=== PATIENT | female | born 1955 | race Two or more races ===

== ENCOUNTER 2019-02-03 17:57 | Emergency (ER) | payer SELFPAY ==
[~2019-02-03] VITALS: Ht 157.5 cm; Wt 102.1 kg
[2019-02-03 18:52] VITALS: BP 164/78
[2019-02-03] MEDS ORDERED: cefTRIAXone SOD 1,000 MG VL IM ONE (19:00)
[2019-02-03] MEDS ORDERED: AMOXICILLIN/CLAVUL 875 MG TAB PO ONE (19:00)
[2019-02-03] MEDS ORDERED: HYDROcodone-ACET 10/325MG TAB PO ONE (19:00)
[2019-02-03] MEDS ORDERED: TETANUS-DIPTH-ACEL PERTUSSIS 0.5ML SYRG IM ONE (19:30)
== END 2019-02-03 19:53 | disposition home or self-care (01) ==
LOC: ER 17:59
DX: S61.255A Open bite of left ring finger without damage to nail, initial encounter (principal); Z90.49 Acquired absence of other specified parts of digestive tract; W54.0XXA Bitten by dog, initial encounter; Y93.89 Activity, other specified; Y99.8 Other external cause status; Y92.89 Other specified places as the place of occurrence of the external cause
CPT/HCPCS: 73130; 90471; 90715; 96372; 99283; J0696

== ENCOUNTER 2020-07-23 23:11 | Inpatient (IN) | payer MEDICAID ==
[~2020-07-23] VITALS: Ht 160 cm; Wt 100.2 kg
[2020-07-24] VITALS (8 sets, daily range): BP systolic 109–148; BP diastolic 63–78
[2020-07-24 00:11] LABS: Basophils # (auto) 0 10 ^3/uL (0-0.2); Basophils % (auto) 0.2 % (0.0-2.0); Eosinophils # (auto) 0 10 ^3/uL (0-0.8); Hematocrit 47.5 % (36.0-46.0); Hemoglobin 15.7 g/dL (12.2-16.2); Lymphocytes % (auto) 12.4 % (10.0-50.0); Mean Corpuscular Hemoglobin 30.4 pg (28.0-32.0); Mean Corpuscular Hgb Conc. 33.1 g/dL (32.0-36.0); Mean Corpuscular Volume 91.7 fL (80.0-100.0); Monocytes # (auto) 0.6 10 ^3/uL (0-1.3); Monocytes % (auto) 7.9 % (0.0-12.0); Neutrophils # (auto) 6.3 10 ^3/uL (1.6-8.6); Neutrophils % (auto) 79.5 % (37.0-80.0); Nucleated Red Blood Cells % 0.2 %; Platelet Count (auto) 163 10^3/uL (140-450); Red Blood Cells 5.18 10^6/uL (4.0-5.20); White Blood Cell 7.9 10^3/uL (4.4-10.8)
[2020-07-24 00:24] LABS: INR 1.01 (0.9-1.15); Partial Thromboplastin Time 27.9 sec (23.0-31.2)
[2020-07-24 00:27] LABS: Albumin 3.9 g/dL (3.4-5.0); Calcium 9.2 mg/dL (8.5-10.1); Potassium 4.1 mmol/L (3.5-5.1)
[2020-07-24 00:29] LABS: BUN/Creatinine Ratio 23.1
[2020-07-24 00:31] LABS: Bilirubin, Total 0.4 mg/dL (0.2-1.0); Total Protein 8.4 g/dL (6.4-8.2)
[2020-07-24] MEDS ORDERED: LEVO500T21 PO (01:23)
[2020-07-24] MEDS ORDERED: IBUP600T27 PO (01:25)
[2020-07-24] MEDS ORDERED: PRED20TA2 PO (01:25)
[2020-07-24] MEDS ORDERED: THIAMINE INJ 100 MG in SODIUM CHLORIDE 0.9% 1,000 ML IV ONE (01:30)
[2020-07-24] MEDS ORDERED: DexAMETHasone SOD PHOS 10MG/1ML VIAL INJ IV ONE (01:30)
[2020-07-24] MEDS ORDERED: DOXYCYCLINE 100MG/250ML 250 ML IV ONE (01:30)
[2020-07-24] MEDS ORDERED: SODIUM CHLORIDE 0.9% 1,000 ML IV ONE (01:30)
[2020-07-24] MEDS ORDERED: THIAMINE 100mg/ml INJ (200mg/2ml VIAL) ONE (01:57)
[2020-07-24 02:13] LABS: Urine Bacteria FEW /hpf (None Seen); Urine Blood Negative /uL (Negative); Urine Hyaline Cast FEW /lpf (0 - 2); Urine Mucus FEW (None Seen); Urine Specific Gravity 1.032 (1.001-1.035); Urine WBC 8 /hpf (0 - 5)
[2020-07-24] MEDS ORDERED: ONDANSETRON HCL 4 MG/2 ML VIAL IV PRN (05:30)
[2020-07-24] MEDS ORDERED: TEMAZEPAM 15 MG CAP PO PRN (05:30)
[2020-07-24] MEDS ORDERED: NITROGLYCERIN 0.4 MG SL TAB SL PRN (05:30)
[2020-07-24] MEDS ORDERED: ACETAMINOPHEN 325 MG TAB PO PRN (05:30)
[2020-07-24] MEDS ORDERED: MORPHINE SULF INJ 2 MG/ML SYRINGE 1ML IV PRN (05:30)
[2020-07-24 05:51] LABS: Magnesium 2.6 mg/dL (1.6-2.6)
[2020-07-24 06:26] LABS: CRP High Sensitivity 2.77 mg/dL (< 0.3)
[2020-07-24] MEDS: ALBUTEROL SULF HFA 90MCG INH 200DOSE IN SCH ×3 (07:31→21:43)
[2020-07-24] MEDS ORDERED: ENOXAPARIN SOD 40 MG/0.4 ML SYRINGE SC SCH (10:00)
[2020-07-24] MEDS: DOXYCYCLINE 100MG/250ML 250 ML IV SCH ×2 (10:38→23:00)
[2020-07-24] MEDS: DexAMETHasone SOD PHOS 10MG/1ML VIAL INJ IV SCH (10:38)
[2020-07-24] MEDS: CHOLECALCIFEROL (VITD3) 2,000 UNIT CAP PO SCH (10:39)
[2020-07-24] MEDS: FAMOTIDINE 20 MG TAB PO SCH ×2 (10:39→21:51)
[2020-07-24] MEDS: ENOXAPARIN SOD 40 MG/0.4 ML SYRINGE SC SCH (10:39)
[2020-07-24] MEDS: ASCORBIC ACID 1,000 MG TAB PO SCH (10:39)
[2020-07-24] MEDS: ZINC SULFATE 220mg CAP or TAB PO SCH (10:39)
[2020-07-24] MEDS ORDERED: FUROSEMIDE 20 MG/2 ML VIAL IV ONE (11:00)
[2020-07-24] MEDS: HYDROcodone-ACET 5/325MG TAB PO PRN (15:31)
[2020-07-24] MEDS ORDERED: REMDESIVIR 200 MG in NS 210ml LOADING DOSE ADULT IV ONE (17:00)
[2020-07-24] MEDS: BUDESONIDE (INHALATION) 180 MCG IH IN SCH (21:43)
[2020-07-25 05:00] VITALS: BP 114/65
[2020-07-25] MEDS: ALBUTEROL SULF HFA 90MCG INH 200DOSE IN SCH ×3 (06:46→21:32)
[2020-07-25] MEDS: BUDESONIDE (INHALATION) 180 MCG IH IN SCH ×2 (06:47→21:32)
[2020-07-25 09:00] VITALS: BP 128/57
[2020-07-25 09:44] LABS: Basophils # (auto) 0 10 ^3/uL (0-0.2); Eosinophils # (auto) 0 10 ^3/uL (0-0.8); Hematocrit 41.1 % (36.0-46.0); Hemoglobin 13.4 g/dL (12.2-16.2); Lymphocytes # (auto) 0.9 10 ^3/uL (0.4-5.4); Lymphocytes % (auto) 12.9 % (10.0-50.0); Mean Corpuscular Hgb Conc. 32.6 g/dL (32.0-36.0); Monocytes # (auto) 0.4 10 ^3/uL (0-1.3); Monocytes % (auto) 5.7 % (0.0-12.0); Neutrophils # (auto) 5.4 10 ^3/uL (1.6-8.6); Neutrophils % (auto) 81.4 % (37.0-80.0); Nucleated Red Blood Cells % 0.1 %; Platelet Count (auto) 109 10^3/uL (140-450); Red Blood Cells 4.47 10^6/uL (4.0-5.20); Red Cell Distribution Width 14.2 % (11.8-14.3); White Blood Cell 6.6 10^3/uL (4.4-10.8)
[2020-07-25 10:00] LABS: Albumin 3.1 g/dL (3.4-5.0); Calcium 7.9 mg/dL (8.5-10.1); Potassium 3.5 mmol/L (3.5-5.1)
[2020-07-25 10:03] LABS: BUN/Creatinine Ratio 38.6; Bilirubin, Total 0.4 mg/dL (0.2-1.0); Total Protein 6.3 g/dL (6.4-8.2)
[2020-07-25] MEDS: DexAMETHasone SOD PHOS 10MG/1ML VIAL INJ IV SCH (11:05)
[2020-07-25] MEDS: FUROSEMIDE 20 MG/2 ML VIAL IV SCH (11:06)
[2020-07-25] MEDS: ZINC SULFATE 220mg CAP or TAB PO SCH (11:07)
[2020-07-25] MEDS: CHOLECALCIFEROL (VITD3) 2,000 UNIT CAP PO SCH (11:07)
[2020-07-25] MEDS: FAMOTIDINE 20 MG TAB PO SCH ×2 (11:07→22:44)
[2020-07-25] MEDS: ASCORBIC ACID 1,000 MG TAB PO SCH (11:07)
[2020-07-25] MEDS: DOXYCYCLINE 100MG/250ML 250 ML IV SCH ×2 (11:07→22:43)
[2020-07-25] MEDS: ENOXAPARIN SOD 40 MG/0.4 ML SYRINGE SC SCH (11:08)
[2020-07-25 12:50] VITALS: BP 117/60
[2020-07-25 16:49] VITALS: BP 103/55
[2020-07-25] MEDS: REMDESIVIR 100mg in NS 230ml DAILYx4DAYS (NO VENT) IV SCH (17:35)
[2020-07-25 22:00] VITALS: BP 112/58
[2020-07-26 05:01] VITALS: BP 121/60
[2020-07-26] MEDS: ALBUTEROL SULF HFA 90MCG INH 200DOSE IN SCH ×3 (07:11→22:02)
[2020-07-26] MEDS: BUDESONIDE (INHALATION) 180 MCG IH IN SCH ×2 (07:12→22:02)
[2020-07-26 08:00] VITALS: BP 127/54
[2020-07-26 09:00] LABS: Albumin 2.9 g/dL (3.4-5.0); BUN/Creatinine Ratio 36.4; Calcium 7.4 mg/dL (8.5-10.1)
[2020-07-26 09:04] LABS: Bilirubin, Total 0.5 mg/dL (0.2-1.0); Total Protein 6.1 g/dL (6.4-8.2)
[2020-07-26] MEDS: DexAMETHasone SOD PHOS 10MG/1ML VIAL INJ IV SCH (10:31)
[2020-07-26] MEDS: ENOXAPARIN SOD 40 MG/0.4 ML SYRINGE SC SCH (10:31)
[2020-07-26] MEDS: FUROSEMIDE 20 MG/2 ML VIAL IV SCH (10:31)
[2020-07-26] MEDS: CHOLECALCIFEROL (VITD3) 2,000 UNIT CAP PO SCH (10:32)
[2020-07-26] MEDS: ZINC SULFATE 220mg CAP or TAB PO SCH (10:32)
[2020-07-26] MEDS: FAMOTIDINE 20 MG TAB PO SCH ×2 (10:32→20:41)
[2020-07-26] MEDS: ASCORBIC ACID 1,000 MG TAB PO SCH (10:32)
[2020-07-26] MEDS: DOXYCYCLINE 100MG/250ML 250 ML IV SCH ×2 (10:39→20:41)
[2020-07-26 12:00] VITALS: BP 138/76
[2020-07-26] MEDS ORDERED: POTASSIUM EFFERVESENT TAB 25 MEQ PO ONE (12:30)
[2020-07-26] MEDS ORDERED: POTASSIUM CHL 20 Meq TABLET PO ONE (12:30)
[2020-07-26 16:57] VITALS: BP 120/55
[2020-07-26] MEDS: REMDESIVIR 100mg in NS 230ml DAILYx4DAYS (NO VENT) IV SCH (17:19)
[2020-07-26 20:02] VITALS: BP 125/57
[2020-07-26 21:35] VITALS: BP 125/56
[2020-07-27 05:00] VITALS: BP 110/60
[2020-07-27] MEDS: LEVOTHYROXINE SODIUM 25 MCG TAB PO SCH (06:32)
[2020-07-27] MEDS: ALBUTEROL SULF HFA 90MCG INH 200DOSE IN SCH ×3 (06:45→22:52)
[2020-07-27] MEDS: BUDESONIDE (INHALATION) 180 MCG IH IN SCH ×2 (06:45→22:53)
[2020-07-27 07:40] LABS: Potassium 3.9 mmol/L (3.5-5.1)
[2020-07-27 08:00] VITALS: BP_SYST 126; BP_SYST 127; BP_DIAS 54; BP_DIAS 61
[2020-07-27 08:00] LABS: Albumin 2.9 g/dL (3.4-5.0); BUN/Creatinine Ratio 48.6; Bilirubin, Total 0.5 mg/dL (0.2-1.0); Calcium 8.1 mg/dL (8.5-10.1); Magnesium 2.5 mg/dL (1.6-2.6)
[2020-07-27] MEDS: DexAMETHasone SOD PHOS 10MG/1ML VIAL INJ IV SCH (09:59)
[2020-07-27] MEDS: ZINC SULFATE 220mg CAP or TAB PO SCH (10:00)
[2020-07-27] MEDS: FAMOTIDINE 20 MG TAB PO SCH ×2 (10:00→22:11)
[2020-07-27] MEDS: FUROSEMIDE 20 MG/2 ML VIAL IV SCH (10:00)
[2020-07-27] MEDS: DOXYCYCLINE 100MG/250ML 250 ML IV SCH ×2 (10:00→22:11)
[2020-07-27] MEDS: ENOXAPARIN SOD 40 MG/0.4 ML SYRINGE SC SCH (10:01)
[2020-07-27] MEDS: CHOLECALCIFEROL (VITD3) 2,000 UNIT CAP PO SCH (10:01)
[2020-07-27] MEDS: ASCORBIC ACID 1,000 MG TAB PO SCH (10:01)
[2020-07-27 12:00] VITALS: BP 118/65
[2020-07-27 14:15] VITALS: BP 119/63
[2020-07-27] MEDS: REMDESIVIR 100mg in NS 230ml DAILYx4DAYS (NO VENT) IV SCH (16:45)
[2020-07-27 17:00] VITALS: BP 120/59
[2020-07-27 21:49] VITALS: BP 115/68
[2020-07-28] MEDS: HYDROcodone-ACET 5/325MG TAB PO PRN (00:29)
[2020-07-28 05:00] VITALS: BP 107/53
[2020-07-28] MEDS: LEVOTHYROXINE SODIUM 25 MCG TAB PO SCH (06:15)
[2020-07-28] MEDS: ALBUTEROL SULF HFA 90MCG INH 200DOSE IN SCH ×3 (06:17→22:49)
[2020-07-28] MEDS: BUDESONIDE (INHALATION) 180 MCG IH IN SCH ×2 (06:18→22:49)
[2020-07-28 08:00] VITALS: BP 130/77
[2020-07-28 08:26] LABS: Hematocrit 43.8 % (36.0-46.0); Hemoglobin 14.4 g/dL (12.2-16.2); Mean Corpuscular Hemoglobin 30.1 pg (28.0-32.0); Mean Corpuscular Hgb Conc. 32.9 g/dL (32.0-36.0); Mean Corpuscular Volume 91.5 fL (80.0-100.0); Platelet Count (auto) 115 10^3/uL (140-450); Red Blood Cells 4.78 10^6/uL (4.0-5.20); Red Cell Distribution Width 14.1 % (11.8-14.3); White Blood Cell 6.1 10^3/uL (4.4-10.8)
[2020-07-28 08:31] LABS: Band Neutrophils % (manual) 0; Basophils % (manual) 0 (0.0-2.0); Blast Cells 0; Eosinophils % (manual) 0 (0-7); Metamyelocytes % 0; Promyelocytes % 0; Reactive Lymphocytes 0
[2020-07-28 08:35] LABS: Potassium 3.7 mmol/L (3.5-5.1)
[2020-07-28 08:48] LABS: Albumin 2.9 g/dL (3.4-5.0); BUN/Creatinine Ratio 47.5; Bilirubin, Total 0.5 mg/dL (0.2-1.0); CRP High Sensitivity 4.67 mg/dL (< 0.3); Calcium 8.1 mg/dL (8.5-10.1); Total Protein 6.1 g/dL (6.4-8.2)
[2020-07-28 09:18] LABS: Lymphocytes % (manual) 25 (10.0-50.0); Monocytes % (manual) 4 (0-12); Myelocytes % 4
[2020-07-28] MEDS: DexAMETHasone SOD PHOS 10MG/1ML VIAL INJ IV SCH (09:35)
[2020-07-28] MEDS: FUROSEMIDE 20 MG/2 ML VIAL IV SCH (09:39)
[2020-07-28] MEDS: DOXYCYCLINE 100MG/250ML 250 ML IV SCH ×2 (09:39→21:49)
[2020-07-28] MEDS: ZINC SULFATE 220mg CAP or TAB PO SCH (09:40)
[2020-07-28] MEDS: FAMOTIDINE 20 MG TAB PO SCH (09:40)
[2020-07-28] MEDS: ASCORBIC ACID 1,000 MG TAB PO SCH (09:40)
[2020-07-28] MEDS: CHOLECALCIFEROL (VITD3) 2,000 UNIT CAP PO SCH (09:40)
[2020-07-28] MEDS: ENOXAPARIN SOD 40 MG/0.4 ML SYRINGE SC SCH (09:41)
[2020-07-28] MEDS ORDERED: ONDANSETRON ODT 4 MG TAB PO ONE (11:30)
[2020-07-28] MEDS ORDERED: PANTOPRAZOLE 40 MG TAB PO ONE (11:30)
[2020-07-28 12:00] VITALS: BP 123/61
[2020-07-28] MEDS ORDERED: FUROSEMIDE 40 MG/4 ML VIAL IV ONE (14:00)
[2020-07-28] MEDS ORDERED: POTASSIUM CHL 20 Meq TABLET PO ONE (15:00)
[2020-07-28 16:00] VITALS: BP 109/54
[2020-07-28] MEDS ORDERED: ALBUAER3 IN (16:38)
[2020-07-28] MEDS ORDERED: CHOL1CAP47 PO (16:38)
[2020-07-28] MEDS ORDERED: METH4PAK PO (16:38)
[2020-07-28] MEDS ORDERED: ASCO10003 PO (16:38)
[2020-07-28] MEDS ORDERED: PANT40T PO (16:38)
[2020-07-28] MEDS ORDERED: ZINC220T6 PO (16:38)
[2020-07-28] MEDS: REMDESIVIR 100mg in NS 230ml DAILYx4DAYS (NO VENT) IV SCH (17:49)
[2020-07-28] MEDS ORDERED: ONDANSETRON ODT 4 MG TAB PO PRN (18:00)
[2020-07-28 22:00] VITALS: BP 128/60
[2020-07-29 05:15] VITALS: BP 117/66
[2020-07-29] MEDS: LEVOTHYROXINE SODIUM 25 MCG TAB PO SCH (06:32)
[2020-07-29] MEDS: ALBUTEROL SULF HFA 90MCG INH 200DOSE IN SCH ×2 (07:04→14:29)
[2020-07-29] MEDS: BUDESONIDE (INHALATION) 180 MCG IH IN SCH (07:04)
[2020-07-29 08:46] VITALS: BP 120/54
[2020-07-29] MEDS: DexAMETHasone SOD PHOS 10MG/1ML VIAL INJ IV SCH (09:22)
[2020-07-29] MEDS: FUROSEMIDE 20 MG/2 ML VIAL IV SCH (09:23)
[2020-07-29] MEDS: ZINC SULFATE 220mg CAP or TAB PO SCH (09:23)
[2020-07-29] MEDS: ASCORBIC ACID 1,000 MG TAB PO SCH (09:24)
[2020-07-29] MEDS: CHOLECALCIFEROL (VITD3) 2,000 UNIT CAP PO SCH (09:24)
[2020-07-29] MEDS: ENOXAPARIN SOD 40 MG/0.4 ML SYRINGE SC SCH (09:25)
[2020-07-29] MEDS ORDERED: PANTOPRAZOLE 40 MG TAB PO SCH (10:00)
[2020-07-29] MEDS ORDERED: POTA1TAB61 PO (10:58)
[2020-07-29] MEDS ORDERED: FURO20TA3 PO (10:58)
[2020-07-29 12:40] VITALS: BP 127/72
[2020-07-29 13:59] VITALS: BP 127/72
== END 2020-07-29 16:13 | disposition home or self-care (01) | DRG 720 ==
LOC: EDBD 23:15 → ER 23:15 → TELE 23:16 → MERGE 23:16 → TELE-EAST 07-24 11:44
PROVIDERS: ADMIT Nurse Practitioner; ATTEND Internal Medicine
PROC: XW033E5 Introduction of Remdesivir Anti-infective into Peripheral Vein, Percutaneous Approach, New Technology Group 5 (ICD-10-PCS; principal; 2020-07-24)
PROC: XW13325 Transfusion of Convalescent Plasma (Nonautologous) into Peripheral Vein, Percutaneous Approach, New Technology Group 5 (ICD-10-PCS; 2020-07-24)
DX: A41.89 Other specified sepsis (principal); J12.89 Other viral pneumonia; J96.01 Acute respiratory failure with hypoxia; U07.1 COVID-19; E03.9 Hypothyroidism, unspecified; E66.01 Morbid (severe) obesity due to excess calories; E86.0 Dehydration; I10 Essential (primary) hypertension; J42 Unspecified chronic bronchitis; M54.9 Dorsalgia, unspecified; M19.90 Unspecified osteoarthritis, unspecified site; Z87.442 Personal history of urinary calculi; Z68.39 Body mass index [BMI] 39.0-39.9, adult; J20.9 Acute bronchitis, unspecified
CPT/HCPCS: 36415; 71045; 80053; 81001; 82728; 82962; 83036; 83605; 83615; 83735; 83880; 84439; 84443; 84484; 85007; 85025; 85027; 85379; 85610; 85730; 86141; 86850; 86900; 86901; 87040; 87086; 87426; 93005; 94640; 99291; G0378; J1100; J3490

== ENCOUNTER 2023-02-22 17:45 | Emergency (ER) | payer OTHER, MEDICAID ==
[~2023-02-22] VITALS: Ht 147.3 cm; Wt 111.5 kg
[2023-02-22 17:45] VITALS: BP 140/62
[~2023-02-22 17:45] MED LIST: ALBUAER3 IN; ASCO10003 PO; CHOL1CAP47 PO; FURO20TA3 PO; METH4PAK PO; PANT40T PO; POTA1TAB61 PO; ZINC220T6 PO
== END 2023-02-22 20:14 | disposition left against medical advice (07) ==
LOC: ER 17:45
DX: R51.9 Headache, unspecified (principal); M25.561 Pain in right knee; Z53.21 Procedure and treatment not carried out due to patient leaving prior to being seen by health care provider
CPT/HCPCS: 70450; 73562

== ENCOUNTER → 2024-04-03 | Outpatient (CLI) | payer OTHER ==
[~2024-04-03] MED LIST changes: +POTA-215 PO; -POTA1TAB61 PO
[2024-04-03 11:33] LABS: Basophils # (auto) 0 10 ^3/uL (0-0.2); Basophils % (auto) 0.5 % (0.0-2.0); Eosinophils # (auto) 0 10 ^3/uL (0-0.8); Eosinophils % (auto) 0.5 % (0.0-7.0); Hematocrit 44.1 % (36.0-46.0); Hemoglobin 14.8 g/dL (12.2-16.2); Lymphocytes # (auto) 1.6 10 ^3/uL (0.4-5.4); Lymphocytes % (auto) 24.6 % (10.0-50.0); Mean Corpuscular Hemoglobin 30.7 pg (28.0-32.0); Mean Corpuscular Hgb Conc. 33.6 g/dL (32.0-36.0); Mean Corpuscular Volume 91.2 fL (80.0-100.0); Monocytes # (auto) 0.6 10 ^3/uL (0-1.3); Monocytes % (auto) 9.4 % (0.0-12.0); Neutrophils # (auto) 4.3 10 ^3/uL (1.6-8.6); Nucleated Red Blood Cells % 0.1 %; Red Blood Cells 4.83 10^6/uL (4.0-5.20); Red Cell Distribution Width 14.2 % (11.8-14.3); White Blood Cell 6.5 10^3/uL (4.4-10.8)
[2024-04-03 12:04] LABS: Urine Bacteria FEW /hpf (None Seen); Urine Blood Negative /uL (Negative); Urine Clarity Clear (Clear); Urine Color Yellow (Yellow); Urine Mucus FEW (None Seen); Urine Protein, UAD Negative (Negative); Urine Specific Gravity 1.024 (1.001-1.035); Urine Urobilinogen Normal (Negative); Urine WBC 2 /hpf (0 - 5)
[2024-04-03 12:09] LABS: Alanine Aminotransferase 11 U/L (7-40); Albumin 4.3 g/dL (3.2-4.8); Alkaline Phosphatase 93 U/L (46-116); Anion Gap 4 (5-15); Aspartate Aminotransferase 15 U/L (13-40); BUN/Creatinine Ratio 22.5 (10.0-20.0); Bilirubin, Total 0.5 mg/dL (0.2-1.0); Blood Urea Nitrogen 16 mg/dL (9-23); Calcium 9.7 mg/dL (8.5-10.1); Carbon Dioxide 30 mmol/L (20-30); Chloride 107 mmol/L (98-107); Cholesterol 132 mg/dL (< 200); Glucose 99 mg/dL (74-106); HDL Cholesterol 33 mg/dL (40-59); LDL Cholesterol 85 mg/dL (< 100); Potassium 3.8 mmol/L (3.5-5.1); Sodium 141 mmol/L (136-145); Total Protein 6.6 g/dL (5.7-8.2); Triglycerides 156 mg/dL (< 150)
== END | disposition home or self-care (01) ==
LOC: LAB 11:13
PROVIDERS: ATTEND Student in an Organized Health Care Education/Training Program
DX: Z00.01 Encounter for general adult medical examination with abnormal findings (principal); Z12.11 Encounter for screening for malignant neoplasm of colon; I10 Essential (primary) hypertension; E55.9 Vitamin D deficiency, unspecified; E78.5 Hyperlipidemia, unspecified; Z79.899 Other long term (current) drug therapy
CPT/HCPCS: 36415; 80053; 80061; 81001; 82306; 83036; 84443; 85025

== ENCOUNTER → 2024-11-19 | Outpatient (CLI) | payer OTHER ==
[2024-11-19 09:37] LABS: Urine Bacteria None Seen /hpf (None Seen)
[2024-11-19 10:00] LABS: Urine Blood Negative /uL (Negative); Urine Clarity Clear (Clear); Urine Color Light-Yellow (Yellow); Urine Mucus FEW (None Seen); Urine Protein, UAD Negative (Negative); Urine Specific Gravity 1.022 (1.001-1.035); Urine Squamous Epithelial Cell FEW /hpf (<5); Urine Urobilinogen Normal (Negative); Urine WBC 1 /HPF (0-5)
[2024-11-19 10:53] LABS: Basophils # (auto) 0 10 ^3/uL (0-0.2); Basophils % (auto) 0.4 % (0.0-2.0); Eosinophils # (auto) 0.1 10 ^3/uL (0-0.8); Hematocrit 43.6 % (36.0-46.0); Hemoglobin 14.2 g/dL (12.2-16.2); Lymphocytes # (auto) 1.3 10 ^3/uL (0.4-5.4); Lymphocytes % (auto) 20.2 % (10.0-50.0); Mean Corpuscular Hemoglobin 29.9 pg (28.0-32.0); Mean Corpuscular Hgb Conc. 32.6 g/dL (32.0-36.0); Mean Corpuscular Volume 91.8 fL (80.0-100.0); Monocytes # (auto) 0.5 10 ^3/uL (0-1.3); Monocytes % (auto) 7.8 % (0.0-12.0); Neutrophils # (auto) 4.4 10 ^3/uL (1.6-8.6); Neutrophils % (auto) 69.6 % (37.0-80.0); Nucleated Red Blood Cells % 0.1 %; Platelet Count (auto) 131 10^3/uL (140-450); Red Blood Cells 4.75 10^6/uL (4.0-5.20); Red Cell Distribution Width 14.7 % (11.8-14.3); White Blood Cell 6.3 10^3/uL (4.4-10.8)
[2024-11-19 11:13] LABS: Free T4 (Free Thyroxine) 1.06 ng/dL (0.89-1.76)
[2024-11-19 12:40] LABS: Alanine Aminotransferase 19 U/L (7-40); Alkaline Phosphatase 87 U/L (46-116); Anion Gap 11 (5-15); BUN/Creatinine Ratio 31.1 (10.0-20.0); Blood Urea Nitrogen 23 mg/dL (9-23); Calcium 9.4 mg/dL (8.7-10.4); Carbon Dioxide 26 mmol/L (20-31); Chloride 106 mmol/L (98-107); Sodium 143 mmol/L (136-145)
[2024-11-19 12:41] LABS: Albumin 4.5 g/dL (3.2-4.8); Aspartate Aminotransferase 23 U/L (13-40)
[2024-11-19 12:42] LABS: Bilirubin, Total 0.7 mg/dL (0.2-1.0); Total Protein 6.7 g/dL (5.7-8.2)
[2024-11-19 12:48] LABS: Glucose 111 mg/dL (74-106)
[2024-11-20 16:05] LABS: Cholesterol 94 mg/dL (< 200); HDL Cholesterol 38 mg/dL (40-59); LDL Cholesterol 46 mg/dL (< 100); Triglycerides 91 mg/dL (< 150)
== END | disposition home or self-care (01) ==
LOC: LAB 09:15
PROVIDERS: ATTEND Nurse Practitioner Family
DX: Z12.11 Encounter for screening for malignant neoplasm of colon (principal); I10 Essential (primary) hypertension; E03.9 Hypothyroidism, unspecified; R73.03 Prediabetes; E66.09 Other obesity due to excess calories
CPT/HCPCS: 36415; 80053; 80061; 81001; 82306; 82607; 83036; 84439; 84443; 85025

== ENCOUNTER 2025-05-07 15:08 | Inpatient (IN) | payer OTHER ==
[~2025-05-07] VITALS: Ht 162.6 cm; Wt 106.5 kg
[2025-05-07 02:32] VITALS: BP 129/66; PULSE 52; RESP 17; TEMP 97.6; O2SAT 97
--- NOTE | 2025-05-07 15:56 | ED.PDOC ---
GI ASSESSMENT HPI Comments 69y F who presents to the ED for chief complaint of abdominal pain. Pt states she has been having abdominal pain for the past 2 days. Pt states the pain is diffusely located, sharp in nature, rating the pain 5/10, non-radiating, with no associated exacerbating or relieving factors. Pt states she has been having nausea and constipation but otherwise denies any other symptoms. Pt states she has not had bowel movement in the past 2 days. Pt denies any other symptoms at this time. Chief Complaint: Abdominal Pain Time Seen by MD: 15:54 Primary Care Provider: JOSEK Reviewed Notes: Nurses Notes, Medications, Allergies Allergies: Coded Allergies: NO KNOWN ALLERGIES (Unverified , 02/03/19) Home Meds Active Scripts Potassium Chloride (Klor-Con M10) 10 Meq Tab, 1 TAB PO DAILY, #7 TAB 0 Refills Prov:ISAIAS DOTY MD 07/29/20 Furosemide (Furosemide) 20 Mg Tab, 1 TAB PO DAILY, #7 TAB 0 Refills Prov:ISAIAS DOTY MD 07/29/20 Methylprednisolone (Medrol Dosepak) 4 Mg Bakari, 4 MG PO UD, #21 TAB UAD Prov:ISAIAS DOTY MD 07/28/20 Zinc Sulfate (Zinc Sulfate) 220 Mg Tab, 220 MG PO DAILY for 30 Days, #30 TAB Prov:ISAIAS DOTY MD 07/28/20 Pantoprazole Sodium Sesquihydr (Pantoprazole Sodium) 40 Mg Tab, 40 MG PO DAILY for 30 Days, #30 TAB Prov:ISAIAS DOTY MD 07/28/20 Cholecalciferol (Vitamin D3 Super Strength) 2,000 Unit Cap, 4000 UNIT PO DAILY for 30 Days, #60 CAP Prov:ISAIAS DOTY MD 07/28/20 Ascorbic Acid (Gnp Vitamin C W/Allyson Hips) 1,000 Mg Tab, 1000 MG PO DAILY for 30 Days, #30 TAB Prov:ISAIAS DOTY MD 07/28/20 Albuterol Sulfate (VENTOLIN MDI) 90 Mcg Ih, 90 MCG IN TID, #1 INH Prov:ISAIAS DOTY MD 07/28/20 Information Source: Patient Mode of Arrival: Ambulatory Brought in by: self Timing: Days Duration: Since onset Prehospital treatment: None Quality: Aching Vomitus: None Stool: Minimal Severity: Moderate Recent: None Recent Hx of: None Pain Location: Diffuse Modifying Factors: Nothing Associated sign and symptoms: Nausea, Constipation Past Medical History PAST MEDICAL HISTORY: HTN Surgical History: Cholecystectomy CERAMIC ARTIST History: No Pertinent CERAMIC ARTIST History Family History Family History: Unknown Social History Smoker: Non-Smoker Alcohol: Denies ETOH Use Drugs: Denies Drug Use Lives In: Home Constitutional: denies: chills, diaphoresis, fatigue, fever, malaise, sweats, weakness, others EENTM: denies: blurred vision, double vision, ear bleeding, ear discharge, ear drainage, ear pain, ear ringing, eye pain, eye redness, hearing loss, mouth pain, mouth swelling, nasal discharge, nose bleeding, nose congestion, nose pain , photophobia, tearing, throat pain, throat swelling, voice changes, others Respiratory: denies: cough, hemoptysis, orthopnea, SOB at rest, shortness of breath, SOB with excertion, stridor, wheezing, others Cardiovascular: denies: chest pain, dizzy spells, diaphoresis, Dyspnea on exertion, edema, irregular heart beat, left arm pain, lightheadedness, palpitations, PND, syncope, others Gastrointestinal: reports: abdominal pain, constipated, nausea; denies: abdomen distended, blood streaked bowels, diarrhea, dysphagia, difficulty swallowing, hematemesis, melena, poor appetite, poor fluid intake, rectal bleeding, rectal pain, vomiting, others Genitourinary: denies: abnormal vagina bleeding, burning, dyspareunia, dysuria, flank pain, frequency, hematuria, incontinence, pain, , vagina discharge, urgency, others Neurological: denies: dizziness, fainting, headache, left sided numbness, left sided weakness, numbness, paresthesia, pre-existing deficit, right sided nu mbness, right sided weakness, seizure, speech problems, tingling, tremors, weakness, others Musculoskeletal: denies: back pain, gout, joint pain, joint swelling, muscle pain, muscle stiffness, neck pain, others Integumetry: denies: bruises, change in color, change in hair/nails, dryness, laceration, lesions, lumps, rash, wounds, others Allergic/Immunocompromised: denies: Difficulty Healing, Frequent Infections, Hives, Itching, others Hematologic/Lymphatic: denies: anemia, blood clots, easy bleeding, easy bruising, swollen glands, others Endocrine: denies: excessive hunger, excessive sweating, excessive thirst, excessive urination, flushing, intolerance to cold, intolerance to heat, unexplained weight gain, unexplained weight loss, others Psychiatric: denies: anxiety, bipolar disorder, depression, hopeless, panic disorder, schizophrenia, sleepless, suicidal, others All Other Systems: Reviewed and Negative Physical Exam General Appearance: Moderate Distress, Obese HEENT: Normal ENT Inspection, Pharynx Normal, TMs Normal Neck: Full Range of Motion, Non-Tender, Normal, Normal Inspection Respiratory: Chest Non-Tender, Lungs Clear, No Accessory Muscle Use, No Respiratory Distress, Normal Breath Sounds Cardiovascular: No Edema, No JVD, No Murmur, No Gallop, Normal Peripheral Pulses, Regular Rate/Rhythm Breast Exam: Deferred Gastrointestinal: Diffuse, No Organomegaly, No Pulsatile Mass, Normal Bowel Sounds, Soft, Tenderness Genitalia: Deferred Pelvic: Deferred Rectal: Deferred Extremities: No calf tenderness, Normal capillary refill, Normal inspection, Normal range of motion, Non-tender, No pedal edema Musculoskeletal : Apperance: Normal Neurologic: Alert, fish liver sorter II-XII nml as Tested, Motor Weakness, Normal Affect, Normal Mood, No Sensory Deficits Cerebellar Function: Normal Reflexes: Normal Skin: Dry, Normal Color, Warm Lymphatic: No Adenopathy Was a procedure done? Was a procedure done?: No GI differential Dx Differential Diagnosis: Constipation, Gastritis/PUD, Gastroenteritis, Hernia, Pancreatitis, UTI, Dehydration, Food Poisoning, Bacterial, Viral X-Ray, Labs, Meds, VS Vital Signs Date Time Temp Pulse Resp B/P (MAP) Pulse Ox O2 Delivery O2 Flow Rate FiO2 05/07/25 15:10 98.1 63 16 110/62 95 98.1 Lab Test 05/07/25 16:01 Range/Units White Blood Count 8.0 4.4-10.8 10^3/uL Red Blood Count 4.88 4.0-5.20 10^6/uL Hemoglobin 14.9 12.2-16.2 g/dL Hematocrit 44.9 36.0-46.0 % Mean Corpuscular Volume 92.0 80.0-100.0 fL Mean Corpuscular Hemoglobin 30.6 28.0-32.0 pg Mean Corpuscular Hemoglobin Concent 33.2 32.0-36.0 g/dL Red Cell Distribution Width 14.6 H 11.8-14.3 % Platelet Count 180 140-450 10^3/uL Mean Platelet Volume 9.9 6.9-10.8 fL Neutrophils (%) (Auto) 69.0 37.0-80.0 % Lymphocytes (%) (Auto) 23.8 10.0-50.0 % Monocytes (%) (Auto) 6.5 0.0-12.0 % Eosinophils (%) (Auto) 0.5 0.0-7.0 % Basophils (%) (Auto) 0.2 0.0-2.0 % Neutrophils # (Auto) 5.5 1.6-8.6 10 ^3/uL Lymphocytes # (Auto) 1.9 0.4-5.4 10 ^3/uL Monocytes # (Auto) 0.5 0-1.3 10 ^3/uL Eosinophils # (Auto) 0 0-0.8 10 ^3/uL Basophils # (Auto) 0 0-0.2 10 ^3/uL Nucleated Red Blood Cells 0.3 % Sodium Level Pending Potassium Level Pending Chloride Level Pending Carbon Dioxide Level Pending Anion Gap Pending Blood Urea Nitrogen Pending Creatinine Pending Glomerular Filtration Rate Calc Pending BUN/Creatinine Ratio Pending Serum Glucose Pending Calcium Level Pending Total Bilirubin Pending Aspartate Amino Transferase (AST) Pending Alanine Aminotransferase (ALT) Pending Alkaline Phosphatase Pending Total Protein Pending Albumin Pending Lipase Pending CAT scan of the abdomen and pelvis shows: IMPRESSION: Limited evaluation without contrast. Ventral wall hernia containing small and large bowel measuring 15.1 x 7.6 cm without evidence for obstruction. Moderate volume stool in the colon. Cirrhotic morphology liver. Atherosclerotic disease. Cholecystectomy clips. An IV Hep-Lock was established The patient was given morphine 4 mg IV push for the pain The patient was given Zofran 4 mg IV push for the nausea. The patient was given Protonix 40 mg IV push The patient's CBC is within normal limits. At this time, the patient is being admitted to the hospitalist. Images Reviewed?: Images reviewed and evaluated by me Time of 1ST Reevaluation: 16:48 Reevaluation 1ST: Improved Patient Education/Counseling: Diagnosis, Treatment, Prognosis Family Education/Counseling: No Family Present SEPSIS Sepsis Screen Date sepsis recognized/suspect: May 07, 2025 Time Sepsis recognized/suspect: 1510 Recent Procedure: No On Antibiotic Therapy: No Respiratory Rate >20: No Heart Rate >90: No Temp<36 C (96.8 F) or >38.3 C: No SBP <90 or MAP <65 mmHG: No New Acute Mental Status Change: No Is the patient on CPAP, BIPAP,: No Physician Orders Comprehensive Metabolic Panel (05/07/25 15:37) Lipase (05/07/25 15:37) Urinalysis (05/07/25 15:37) Ct Ab Pel Wo Con-No Oral Or Iv (05/07/25 15:37) Heplock Iv (05/07/25 15:37) Kettle Fry Cook Operator (05/07/25 15:37) Blood Pressure (05/07/25 15:37) Pulse Oximetry (05/07/25 15:37) Vital Signs Date Time Temp Pulse Resp B/P (MAP) Pulse Ox O2 Delivery O2 Flow Rate FiO2 05/07/25 15:10 98.1 63 16 110/62 95 98.1 Laboratory Tests Test 05/07/25 16:01 White Blood Count 8.0 10^3/uL (4.4-10.8) Departure 1 Departure Time of Disposition: 16:48 Impression: Primary Impression: Intractable abdominal pain Additional Impression: Ventral hernia Qualified Codes: K43.9 - Ventral hernia without obstruction or gangrene Disposition: 09 ADMITTED INPATIENT Admit to: Med Surg Condition: Fair Critical Care Note Critical Care Time?: No Stability Stability form required: Yes Unstable for transfer: ED Physician Assesment (Clinical assesment) Heart Score Heart Score: Heart Score Response (Comments) Value History N/A 0 EKG N/A 0 Age N/A 0 Risk Factors N/A 0 Troponin N/A 0 Total 0 I personally scribed for CAYLA SÁNCHEZ MD ([email or web address]) on 05/07/25 at 15:56. Electronically submitted by Moni PHILLIP). CAYLA SÁNCHEZ MD May 07, 2025 15:56
[2025-05-07 16:32] LABS: Hematocrit 44.9 % (36.0-46.0); Hemoglobin 14.9 g/dL (12.2-16.2); Mean Corpuscular Hemoglobin 30.6 pg (28.0-32.0); Mean Corpuscular Volume 92.0 fL (80.0-100.0); Nucleated Red Blood Cells % 0.3 %
--- NOTE | 2025-05-07 16:32 | DVH ---
Indication: pain Technique: CT axial images of the abdomen and pelvis are obtained without contrast. Coronal and sagit nakul reformats were obtained. Radiation Dose Information: CTDI volume is 23.7 mGy. Dose-length product is 3.92 mGy*cm Comparison: None FINDINGS: There is limited interpretation of the abdomen and pelvis without administration of intravenous contr ast. Lung bases demonstrate no pleural effusion. Adrenal glands, spleen, pancreas unremarkable in shape. Cholecystectomy. Liver capsule nodular morph ology. No hydronephrosis/ nephrolithiasis. Stomach is partially distended. Small bowel loops are normal in caliber. Moderate volume stool in the colon. Normal appendix. Ventral wall hernia containing small and large bowel measuring 15.1 x 7.6 cm . Abdominal aortic atherosclerotic disease. Bladder partially distended. No free pelvic fluid. No ingui nal lymphadenopathy. Moderate bilateral sacroiliac degenerative joint disease. Moderate thoracolumbar degenerative disc di sease and facet hypertrophic changes. IMPRESSION: Limited evaluation without contrast. Ventral wall hernia containing small and large bowel measuring 15.1 x 7.6 cm without evidence for obs truction. Moderate volume stool in the colon. Cirrhotic morphology liver. Atherosclerotic disease. Cholecystectomy clips. Other findings as described.
[2025-05-07 16:45] LABS: Alanine Aminotransferase 11 U/L (7-40); Albumin 4.6 g/dL (3.2-4.8); Alkaline Phosphatase 98 U/L (46-116); Anion Gap 8 (5-15); BUN/Creatinine Ratio 21.1 (10.0-20.0); Bilirubin, Total 0.4 mg/dL (0.2-1.0); Blood Urea Nitrogen 16 mg/dL (9-23); Calcium 8.9 mg/dL (8.7-10.4); Carbon Dioxide 27 mmol/L (20-31); Glucose 100 mg/dL (74-106); Lipase 36 U/L (12-53); Potassium 4.3 mmol/L (3.5-5.1); Sodium 142 mmol/L (136-145); Total Protein 7.0 g/dL (5.7-8.2)
[2025-05-07 16:58] LABS: Chloride 107 mmol/L (98-107)
[2025-05-07 18:51] LABS: Urine Protein, UAD Negative (Negative)
[2025-05-07] MEDS: SODIUM CHLORIDE 0.9% 500 ML IVB ONE (19:12)
[2025-05-07] MEDS: MORPHINE SULFATE 4 MG/ML SYR/VIAL IV ONE (19:50)
[2025-05-07] MEDS: ONDANSETRON HCL 4 MG/2 ML VIAL IV ONE (19:51)
[2025-05-07] MEDS: PANTOPRAZOLE 40 MG/10 ML VIAL INJ IV ONE (19:52)
[2025-05-07] MEDS ORDERED: ALBUTEROL SULF 2.5 MG/0.5ML(0.5%) NEB SOLN NEB PRN (20:15)
--- NOTE | 2025-05-07 22:35 | DVHHP2 ---
History of Present Illness Reason for Visit: Abdominal pain History of Present Illness 69-year-old female presents for evaluation of abdominal pain. Patient endorses a two day history of diffuse abdominal pain/feeling bloated with associated nausea. She also reports being constipated for the last two days. No fever or chills. No cardiac or respiratory complaints. Past Medical History Hypertension Past Surgical History Cholecystectomy Family History Noncontributory Smoke: No ALCOHOL: none Drugs: None Review of Systems Review of Systems Review of systems are currently negative otherwise addressed in HPI. Allergies: Coded Allergies: NO KNOWN ALLERGIES (Unverified , 02/03/19) Medications Current Medications Medications Dose Ordered Sig/Samm Route Start Time Stop Time Status Last Admin Dose Admin Acetaminophen/ Hydrocodone Bitart 1 tab Q4HP PRN PO 05/07/25 20:15 Temazepam 15 mg QHSP PRN PO 05/07/25 20:15 Ondansetron HCl 4 mg Q4HP PRN IV 05/07/25 20:15 Acetaminophen 650 mg Q6HP PRN PO 05/07/25 20:15 Docusate Sodium 100 mg BID PO 05/07/25 22:00 Albuterol 2.5 mg Q6HPRN PRN NEB 05/07/25 20:15 Furosemide 20 mg DAILY PO 05/08/25 10:00 Pantoprazole Sodium 40 mg DAILY IV 05/08/25 10:00 Losartan Potassium 50 mg DAILY PO 05/08/25 10:00 Exam Vital Signs Vital Signs Date Time Temp Pulse Resp B/P (MAP) Pulse Ox O2 Delivery O2 Flow Rate FiO2 05/07/25 21:52 98.1 60 16 151/59 (89) 97 98.1 05/07/25 19:52 Room Air Exam Gen: 69-year-old female in mild distress, morbidly obese Skin: Warm, dry, normal color and texture, no rash. HEENT: Normocephalic atraumatic, mucous membranes moist and pink. Neck: Cervical and supraclavicular nodes normal without enlargement, trachea is midline, thyroid gland is normal without masses. Pulmonary: Clear to auscultation and percussion bilaterally. Cardiac: Regular rate and rhythm. No murmur Abdomen: Soft, nontender, distended, bowel sounds present all 4 quadrants, no g uarding, no rigidity, no organomegaly. Extremities: No cyanosis, clubbing, no edema Neuro: Cranial nerves II through XII grossly intact, normal affect and speech, no focal motor deficits. Labs/Xrays ORDERING PHYSICIAN: CAYLA SÁNCHEZ MD PROCEDURE(s): ABPL - CT AB PEL WO CON-NO ORAL OR IV REASON: pain ORDER NUMBER(s): [id number], ACCESSION NUMBER(s): [id number] Indication: pain Technique: CT axial images of the abdomen and pelvis are obtained without contrast. Coronal and sagittal reformats were obtained. Radiation Dose Information: CTDI volume is 23.7 mGy. Dose-length product is 3.92 mGy*cm Comparison: None FINDINGS: There is limited interpretation of the abdomen and pelvis without administration of intravenous contrast. Lung bases demonstrate no pleural effusion. Adrenal glands, spleen, pancreas unremarkable in shape. Cholecystectomy. Liver capsule nodular morphology. No hydronephrosis/ nephrolithiasis. Stomach is partially distended. Small bowel loops are normal in caliber. Moderate volume stool in the colon. Normal appendix. Ventral wall hernia containing small and large bowel measuring 15.1 x 7.6 cm. Abdominal aortic atherosclerotic disease. Bladder partially distended. No free pelvic fluid. No inguinal lymphadenopathy. Moderate bilateral sacroiliac degenerative joint disease. Moderate thoracolumbar degenerative disc disease and facet hypertrophic changes. IMPRESSION: Limited evaluation without contrast. Ventral wall hernia containing small and large bowel measuring 15.1 x 7.6 cm without evidence for obstruction. Moderate volume stool in the colon. Cirrhotic morphology liver. Atherosclerotic disease. Cholecystectomy clips. Other findings as described. Labs Test 05/07/25 16:01 05/07/25 15:37 Range/Units White Blood Count 8.0 4.4-10.8 10^3/uL Red Blood Count 4.88 4.0-5.20 10^6/uL Hemoglobin 14.9 12.2-16.2 g/dL Hematocrit 44.9 36.0-46.0 % Mean Corpuscular Volume 92.0 80.0-100.0 fL Mean Corpuscular Hemoglobin 30.6 28.0-32.0 pg Mean Corpuscular Hemoglobin Concent 33.2 32.0-36.0 g/dL Red Cell Distribution Width 14.6 H 11.8-14.3 % Platelet Count 180 140-450 10^3/uL Mean Platelet Volume 9.9 6.9-10.8 fL Neutrophils (%) (Auto) 69.0 37.0-80.0 % Lymphocytes (%) (Auto) 23.8 10.0-50.0 % Monocytes (%) (Auto) 6.5 0.0-12.0 % Eosinophils (%) (Auto) 0.5 0.0-7.0 % Basophils (%) (Auto) 0.2 0.0-2.0 % Neutrophils # (Auto) 5.5 1.6-8.6 10 ^3/uL Lymphocytes # (Auto) 1.9 0.4-5.4 10 ^3/uL Monocytes # (Auto) 0.5 0-1.3 10 ^3/uL Eosinophils # (Auto) 0 0-0.8 10 ^3/uL Basophils # (Auto) 0 0-0.2 10 ^3/uL Nucleated Red Blood Cells 0.3 % Sodium Level 142 136-145 mmol/L Potassium Level 4.3 3.5-5.1 mmol/L Chloride Level 107 98-107 mmol/L Carbon Dioxide Level 27 20-31 mmol/L Anion Gap 8 5-15 Blood Urea Nitrogen 16 9-23 mg/dL Creatinine 0.76 0.550-1.02 mg/dL Glomerular Filtration Rate Calc 86 >90 mL/min BUN/Creatinine Ratio 21.1 H 10.0-20.0 Serum Glucose 100 74-106 mg/dL Calcium Level 8.9 8.7-10.4 mg/dL Total Bilirubin 0.4 0.2-1.0 mg/dL Aspartate Amino Transferase (AST) 20 13-40 U/L Alanine Aminotransferase (ALT) 11 7-40 U/L Alkaline Phosphatase 98 46-116 U/L Total Protein 7.0 5.7-8.2 g/dL Albumin 4.6 3.2-4.8 g/dL Lipase 36 12-53 U/L Urine Color Light-yellow Yellow Urine Clarity Clear Clear Urine pH 5.0 5.0-9.0 Urine Specific [place] 1.014 1.001-1.035 Urine Protein Negative Negative Urine Ketones Negative Negative Urine Blood Negative Negative /uL Urine Nitrite Negative Negative Urine Bilirubin Negative Negative Urine Urobilinogen Normal Negative mg/dL Urine Leukocyte Esterase Negative Negative /uL Urine RBC 1 0 - 4 /hpf Urine Microscopic WBC 1 0-5 /HPF Urine Squamous Epithelial Cells Few <5 /hpf Urine Bacteria None seen None Seen /hpf Urine Glucose Normal Normal mg/dL SEPSIS Sepsis Screen Date sepsis recognized/suspect: May 07, 2025 Time Sepsis recognized/suspect: 1952 Recent Procedure: No On Antibiotic Therapy: No Respiratory Rate >20: No Heart Rate >90: No Temp<36 C (96.8 F) or >38.3 C: No SBP <90 or MAP <65 mmHG: No New Acute Mental Status Change: No Is the patient on CPAP, BIPAP,: No Physician Orders Ct Ab Pel Wo Con-No Oral Or Iv (05/07/25 15:37) Heplock Iv (05/07/25 15:37) Size Maker (05/07/25 15:37) Blood Pressure (05/07/25 15:37) Pulse Oximetry (05/07/25 15:37) Admit (05/07/25 19:59) * Gi [facility] Optical Element Coater (05/07/25 20:02) * Surgical Consult (05/07/25 ) Basic Metabolic Panel (05/08/25 04:00) Hydrocodone-Acet 5/325mg Tab ([place] 5/32 (05/07/25 20:15) Temazepam (Restoril) (05/07/25 20:15) Ondansetron Hcl (Zofran) (05/07/25 20:15) Complete Blood Count (05/08/25 04:00) Condition: Stable (05/07/25 20:02) Acetaminophen Tablet (Tylenol Tablet) (05/07/25 20:15) Clear Liq Diet (05/08/25 Breakfast) Bedrest With Bathroom Privileg (05/07/25 20:02) Docusate Sodium Capsule (Colace Capsule) (05/07/25 22:00) Albuterol Medneb (Ventolin Medneb) (05/07/25 20:15) Furosemide Tablet (Lasix Tablet) (05/08/25 10:00) Pantoprazole (Protonix) (05/08/25 10:00) Losartan Tablet (Cozaar Tablet) (05/08/25 10:00) Vital Signs Date Time Temp Pulse Resp B/P (MAP) Pulse Ox O2 Delivery O2 Flow Rate FiO2 8/5/25 21:52 98.1 60 16 151/59 (89) 97 98.1 05/07/25 19:52 69 16 94 Room Air 05/07/25 19:50 69 16 125/61 05/07/25 18:54 98.3 69 16 125/61 (82) 94 98.3 05/07/25 15:10 98.1 63 16 110/62 95 98.1 Laboratory Tests Test 05/07/25 16:01 White Blood Count 8.0 10^3/uL (4.4-10.8) Medications Medications Dose Ordered Sig/Samm Route Start Time Stop Time Status Last Admin Dose Admin Morphine Sulfate 4 mg ONCE ONCE IV 05/07/25 15:45 05/07/25 15:46 DC 05/07/25 19:50 4 MG Ondansetron HCl 4 mg ONCE ONCE IV 05/07/25 15:45 05/07/25 15:46 DC 05/07/25 19:51 4 MG Pantoprazole Sodium 40 mg ONCE ONCE IV 05/07/25 15:45 05/07/25 15:46 DC 05/07/25 19:52 40 MG Sodium Chloride 500 ml @ 500 mls/hr Q1H ONCE IVB 05/07/25 15:45 05/07/25 16:44 DC 05/07/25 19:12 500 MLS/HR Assessment/Plan Assessment/Plan Assessment Acute abdominal pain Hypertension Ventral hernia Plan Admit the patient to [facility] to the hospitalist Clear liquid diet GI consult Surgical consult Resume home medications Continue treatment per orders. Plan discussed with: Patient My Orders Orders - JAM BAKERCNMalik Procedure Category Date Status Time Admit ADMIT 05/07/25 Transmitted 19:59 * Gi Dvh Optical Element Coater CONS 05/07/25 Transmitted 20:02 * Surgical Consult CONS 05/07/25 Transmitted Basic Metabolic Panel LAB 05/08/25 Verified 04:00 Hydrocodone-Acet PHA 05/07/25 In Process 5/325mg Tab ([place] 20:15 Temazepam (Restoril) PHA 05/07/25 In Process 20:15 Ondansetron Hcl PHA 05/07/25 In Process (Zofran) 20:15 Complete Blood Count LAB 05/08/25 Verified 04:00 Condition: Stable JATINDER 05/07/25 In Process 20:02 Acetaminophen Tablet PHA 05/07/25 In Process (Tylenol Tablet) 20:15 Clear Liq Diet DIET 05/08/25 Transmitted Breakfast Bedrest With Bathroom JATINDER 05/07/25 In Process Privileg 20:02 Docusate Sodium PHA 05/07/25 In Process Capsule (Colace 22:00 Albuterol Medneb PHA 05/07/25 In Process (Ventolin Medneb) 20:15 Furosemide Tablet PHA 05/08/25 In Process (Lasix Tablet) 10:00 Pantoprazole PHA 05/08/25 In Process (Protonix) 10:00 Losartan Tablet PHA 05/08/25 In Process (Cozaar Tablet) 10:00 Date of Service: May 07, 2025 Billing Provider: JAM BAKER Common Visit Codes: [id number] INP/OBS CARE (HIGH) JAM BAKER May 07, 2025 22:35
[2025-05-07] MEDS: DOCUSATE SOD 100 MG CAP PO SCH (23:03)
[2025-05-07 23:09] VITALS: BP 145/70; PULSE 58; RESP 17; TEMP 97.5; O2SAT 100
[2025-05-07] MEDS: HYDROcodone-ACET 5/325MG TAB PO PRN (23:17)
[2025-05-07 23:29] VITALS: O2SAT 99
[2025-05-07 23:44] VITALS: BP 145/70; PULSE 54; RESP 16; TEMP 97.5; O2SAT 99
[2025-05-08] VITALS (8 sets, daily range): BP systolic 105–150; BP diastolic 61–79; PULSE 53–63; RESP 16–18; TEMP 97.6–98.4; O2SAT 93–99
[2025-05-08 07:31] LABS: Hematocrit 40.1 % (36.0-46.0); Hemoglobin 13.4 g/dL (12.2-16.2); Mean Corpuscular Hemoglobin 30.8 pg (28.0-32.0); Mean Corpuscular Volume 92.0 fL (80.0-100.0); Nucleated Red Blood Cells % 0.1 %
[2025-05-08 07:47] LABS: Anion Gap 10 (5-15); Carbon Dioxide 25 mmol/L (20-31); Potassium 4.0 mmol/L (3.5-5.1); Sodium 142 mmol/L (136-145)
[2025-05-08 07:53] LABS: BUN/Creatinine Ratio 18.8 (10.0-20.0); Blood Urea Nitrogen 13 mg/dL (9-23); Glucose 102 mg/dL (74-106)
[2025-05-08 07:59] LABS: Calcium 8.4 mg/dL (8.7-10.4); Chloride 107 mmol/L (98-107)
[2025-05-08] MEDS: ONDANSETRON HCL 4 MG/2 ML VIAL IV PRN (08:59)
[2025-05-08] MEDS: PANTOPRAZOLE 40 MG/10 ML VIAL INJ IV SCH (10:06)
[2025-05-08] MEDS: FUROSEMIDE 20 MG TAB PO SCH (10:07)
[2025-05-08] MEDS: LOSARTAN POTASSIUM 50 MG TAB PO SCH (10:07)
--- NOTE | 2025-05-08 14:34 | DVHPN2 ---
Subjective 69-year-old female with a history of hypertension came with a chief complaint of abdominal pain She had a ventral hernia for a long time She vomited once yesterday and therefore she came to the emergency room Changes from previous H/P or p: Changes Objective Vitals Vital Signs Date Time Temp Pulse Resp B/P (MAP) Pulse Ox O2 Delivery O2 Flow Rate FiO2 05/08/25 10:07 142/79 05/08/25 09:00 98.4 58 16 97 98.4 05/08/25 08:00 Room Air* 0 21 Intake/Output Intake and Output 05/08/25 07:00 Intake Total 300 ml Balance 300 ml Intake Oral 300 ml # Voids 1 General Appearance: Alert, Oriented X3, Cooperative, No acute distress Lungs: Clear to auscultation, Normal air movement Cardiovascular: Regular rate, Normal S1, Normal S2 Abdomen: Normal bowel sounds, Soft, No tenderness Extremities: No edema Medications Current Medications Medications Dose Ordered Sig/Samm Route Start Time Stop Time Status Last Admin Dose Admin Acetaminophen/ Hydrocodone Bitart 1 tab Q4HP PRN PO 05/07/25 20:15 05/07/25 23:17 1 TAB Temazepam 15 mg QHSP PRN PO 05/07/25 20:15 Ondansetron HCl 4 mg Q4HP PRN IV 05/07/25 20:15 05/08/25 08:59 4 MG Acetaminophen 650 mg Q6HP PRN PO 05/07/25 20:15 Docusate Sodium 100 mg BID PO 05/07/25 22:00 05/08/25 10:06 100 MG Furosemide 20 mg DAILY PO 05/08/25 10:00 05/08/25 10:07 20 MG Pantoprazole Sodium 40 mg DAILY IV 05/08/25 10:00 05/08/25 10:06 40 MG Losartan Potassium 50 mg DAILY PO 05/08/25 10:00 05/08/25 10:07 50 MG Polyethylene Glycol 17 gm DAILY PO 05/09/25 10:00 Lactulose 30 ml BID PO 05/08/25 22:00 Laboratory Results Laboratory Tests 05/08/25 05:01 Chemistry Test 05/07/25 16:01 05/08/25 05:01 Albumin 4.6 g/dL (3.2-4.8) Calcium Level 8.9 mg/dL (8.7-10.4) 8.4 mg/dL (8.7-10.4) L Total Protein 7.0 g/dL (5.7-8.2) Lipid panel Test 05/07/25 16:01 Lipase 36 U/L (12-53) LFT Test 05/07/25 16:01 Alanine Aminotransferase (ALT) 11 U/L (7-40) Alkaline Phosphatase 98 U/L (46-116) Aspartate Amino Transferase (AST) 20 U/L (13-40) Total Bilirubin 0.4 mg/dL (0.2-1.0) Urinalysis Test 05/07/25 15:37 Urine Color Light-yellow (Yellow) Urine Clarity Clear (Clear) Urine pH 5.0 (5.0-9.0) Urine Specific [place] 1.014 (1.001-1.035) Urine Protein Negative (Negative) Urine Ketones Negative (Negative) Urine Blood Negative /uL (Negative) Urine Nitrite Negative (Negative) Urine Bilirubin Negative (Negative) Urine Urobilinogen Normal mg/dL (Negative) Urine Leukocyte Esterase Negative /uL (Negative) Urine RBC 1 /hpf (0 - 4) Urine Microscopic WBC 1 /HPF (0-5) Urine Squamous Epithelial Cells Few /hpf (<5) Urine Bacteria None seen /hpf (None Seen) Urine Glucose Normal mg/dL (Normal) Assessment/Plan Assessment/Plan Abdominal ventral hernia Hypertension Obesity Plan Surgical consult NPO after midnight EKG Chest x-ray PT and PTT Resume home medications Monitor closely Full code Plan discussed with: Patient, Daughter Date of Service: May 08, 2025 Billing Provider: LEON RDZ MD Common Visit Codes: [id number] INP/OBS CARE(HIGH) LEON RDZ MD May 08, 2025 14:34
--- NOTE | 2025-05-08 14:49 | DVHINCON2 ---
Date of service: May 08, 2025 Family History: FH: cancer G8 MOTHER Allergies: Coded Allergies: NO KNOWN ALLERGIES (Unverified , 02/03/19) Home Meds Active Scripts Potassium Chloride (Klor-Con M10) 10 Meq Tab, 1 TAB PO DAILY, #7 TAB 0 Refills Prov:ISAIAS DOTY MD 07/29/20 Furosemide (Furosemide) 20 Mg Tab, 1 TAB PO DAILY, #7 TAB 0 Refills Prov:ISAIAS DOTY MD 07/29/20 Methylprednisolone (Medrol Dosepak) 4 Mg Bakari, 4 MG PO UD, #21 TAB UAD Prov:ISAIAS DOTY MD 07/28/20 Zinc Sulfate (Zinc Sulfate) 220 Mg Tab, 220 MG PO DAILY for 30 Days, #30 TAB Prov:ISAIAS DOTY MD 07/28/20 Pantoprazole Sodium Sesquihydr (Pantoprazole Sodium) 40 Mg Tab, 40 MG PO DAILY for 30 Days, #30 TAB Prov:ISAIAS DOTY MD 07/28/20 Cholecalciferol (Vitamin D3 Super Strength) 2,000 Unit Cap, 4000 UNIT PO DAILY for 30 Days, #60 CAP Prov:ISAIAS DOTY MD 07/28/20 Ascorbic Acid (Gnp Vitamin C W/Allyson Hips) 1,000 Mg Tab, 1000 MG PO DAILY for 30 Days, #30 TAB Prov:ISAIAS DOTY MD 07/28/20 Albuterol Sulfate (VENTOLIN MDI) 90 Mcg Ih, 90 MCG IN TID, #1 INH Prov:ISAIAS DOTY MD 07/28/20 Current Medications Current Medications Medications (Trade) Dose Ordered Sig/Samm Route PRN Reason Start Time Stop Time Status Last Admin Acetaminophen/ Hydrocodone Bitart ([place] 5/325MG Tab) 1 tab Q4HP PRN PO MODERATE PAIN (4-6 PAIN SCALE) 05/07/25 20:15 05/07/25 23:17 Temazepam (Restoril) 15 mg QHSP PRN PO FOR INSOMNIA 05/07/25 20:15 Ondansetron HCl (Zofran) 4 mg Q4HP PRN IV NAUSEA / VOMITING 05/07/25 20:15 05/08/25 08:59 Acetaminophen (Tylenol Tablet) 650 mg Q6HP PRN PO PAIN SCALE 1-3 OR TEMP>100.4 05/07/25 20:15 Docusate Sodium (Colace Capsule) 100 mg BID PO 05/07/25 22:00 05/08/25 10:06 Albuterol (Ventolin Medneb) 2.5 mg Q6HPRN PRN NEB SHORTNESS OF BREATH 05/07/25 20:15 05/08/25 13:20 DC Furosemide (Lasix Tablet) 20 mg DAILY PO 05/08/25 10:00 05/08/25 10:07 Pantoprazole Sodium (Protonix) 40 mg DAILY IV 05/08/25 10:00 05/08/25 10:06 Losartan Potassium (Cozaar Tablet) 50 mg DAILY PO 05/08/25 10:00 05/08/25 10:07 Polyethylene Glycol (Miralax 17GM Powder) 17 gm DAILY PO 05/09/25 10:00 Lactulose 30 ml BID PO 05/08/25 22:00 Vital Signs Vital Signs Date Time Temp Pulse Resp B/P (MAP) Pulse Ox O2 Delivery O2 Flow Rate FiO2 05/08/25 10:07 142/79 05/08/25 09:00 98.4 58 16 97 98.4 05/08/25 08:00 Room Air* 0 21 Labs/Diagnostic Data Labs Test 05/08/25 05:01 05/07/25 16:01 05/07/25 15:37 Range/Units White Blood Count 6.4 4.4-10.8 10^3/uL Red Blood Count 4.36 4.0-5.20 10^6/uL Hemoglobin 13.4 12.2-16.2 g/dL Hematocrit 40.1 # 36.0-46.0 % Mean Corpuscular Volume 92.0 80.0-100.0 fL Mean Corpuscular Hemoglobin 30.8 28.0-32.0 pg Mean Corpuscular Hemoglobin Concent 33.5 32.0-36.0 g/dL Red Cell Distribution Width 14.3 11.8-14.3 % Platelet Count 142 140-450 10^3/uL Mean Platelet Volume 10.1 6.9-10.8 fL Neutrophils (%) (Auto) 69.0 37.0-80.0 % Lymphocytes (%) (Auto) 21.9 10.0-50.0 % Monocytes (%) (Auto) 7.8 0.0-12.0 % Eosinophils (%) (Auto) 1.0 0.0-7.0 % Basophils (%) (Auto) 0.3 0.0-2.0 % Neutrophils # (Auto) 4.4 1.6-8.6 10 ^3/uL Lymphocytes # (Auto) 1.4 0.4-5.4 10 ^3/uL Monocytes # (Auto) 0.5 0-1.3 10 ^3/uL Eosinophils # (Auto) 0.1 0-0.8 10 ^3/uL Basophils # (Auto) 0 0-0.2 10 ^3/uL Nucleated Red Blood Cells 0.1 % Sodium Level 142 136-145 mmol/L Potassium Level 4.0 3.5-5.1 mmol/L Chloride Level 107 98-107 mmol/L Carbon Dioxide Level 25 20-31 mmol/L Anion Gap 10 5-15 Blood Urea Nitrogen 13 9-23 mg/dL Creatinine 0.69 0.550-1.02 mg/dL Glomerular Filtration Rate Calc 95 >90 mL/min BUN/Creatinine Ratio 18.8 10.0-20.0 Serum Glucose 102 74-106 mg/dL Calcium Level 8.4 L 8.7-10.4 mg/dL Total Bilirubin 0.4 0.2-1.0 mg/dL Aspartate Amino Transferase (AST) 20 13-40 U/L Alanine Aminotransferase (ALT) 11 7-40 U/L Alkaline Phosphatase 98 46-116 U/L Total Protein 7.0 5.7-8.2 g/dL Albumin 4.6 3.2-4.8 g/dL Lipase 36 12-53 U/L Urine Color Light-yellow Yellow Urine Clarity Clear Clear Urine pH 5.0 5.0-9.0 Urine Specific [place] 1.014 1.001-1.035 Urine Protein Negative Negative Urine Ketones Negative Negative Urine Blood Negative Negative /uL Urine Nitrite Negative Negative Urine Bilirubin Negative Negative Urine Urobilinogen Normal Negative mg/dL Urine Leukocyte Esterase Negative Negative /uL Urine RBC 1 0 - 4 /hpf Urine Microscopic WBC 1 0-5 /HPF Urine Squamous Epithelial Cells Few <5 /hpf Urine Bacteria None seen None Seen /hpf Urine Glucose Normal Normal mg/dL Assessment [id number] C/O ABD PAIN N/V NO BM AFEBRILE VSS ABD SOFT NON ACUTE INCARCERATED POSTINCISIONAL VENTRAL HERNIA MANUAL REDUCTION ATTEMPTED AT BEDSIDE NURSE AT BEDSIDE VENTRAL HERNIA REDUCED CONSIDER EMERGENT SURGERY BASED ON ONGOING EVAL Plan discussed with: Other ADRIANA ARMSTRONG MD May 08, 2025 14:49
--- NOTE | 2025-05-08 15:36 | DVHINCON2 ---
DATE OF CONSULTATION: 05/08/2025 HISTORY OF PRESENT ILLNESS: This patient is 69-year-old, coming in with abdominal pain, distention, some nausea and vomiting. She has not had a bowel activity for today. No fever or chills. No hematemesis or melena. No bleeding per rectum. PAST MEDICAL HISTORY: Hypertension. PAST SURGICAL HISTORY: Open cholecystectomy, details are not clear. PHYSICAL EXAMINATION: VITAL SIGNS: Afebrile, stable signs. HEENT: With no evidence of pallor, cyanosis, or jaundice. NECK: Supple and nontender. There is no thyromegaly or lymphadenopathy. CHEST AND LUNGS: Clear. HEART: Within normal limits. ABDOMEN: Soft. She does have an incarcerated post-incisional ventral hernia, but she does not have an acute abdomen that would necessitate acute surgical intervention. NEUROLOGIC: Not assessed. EXTREMITIES: Unremarkable. CLINICAL IMPRESSION: Incarcerated post incisional hiatal hernia. PLAN: Plan will be is to attempt manual reduction and then consider emergent or elective surgery based upon ongoing evaluation. Zack Freeman MD RG/EKT TID: [id number] RECEIPT: [id number] cc: Uzma Morales MD
--- NOTE | 2025-05-08 15:42 | DVH ---
EXAM: XY CHEST PORTABLE TECHNIQUE: Single frontal chest radiograph CLINICAL HISTORY: preop COMPARISON: None Findings/Impression: Frontal chest radiograph demonstrates no acute osseous or superficial soft tissue abnormalities. The trachea is midline. The cardiac silhouette and mediastinum are within normal limits. No pneumothorax, pleural effusions, or consolidations.
[2025-05-08 15:48] LABS: INR 1.02 (0.9-1.15); Partial Thromboplastin Time 28.2 SEC (24.5-34.5); Prothrombin Time 10.8 sec (9.3-11.8)
[2025-05-08] MEDS: FLEET ENEMA(ADULT) 135 ML PR ONE (16:45)
--- NOTE | 2025-05-08 16:57 | DVHCONRES ---
Date Seen: May 08, 2025 Resident Creating Document: JEWELS MOONEY RESIDENT Referring Physician Mikey Herbert Reason for Consultation Intractable abdominal pain History of Present Illness 69-year-old female with past medical history of hypertension and pre-diabetes, presenting with 2-day history of diffuse upper abdominal pain, bloating, nausea, and non-bilious vomiting. She reports no bowel movements for the past 3 days. She ate a small amount this morning but vomited shortly afterward. Denies fever, chills, hematemesis, or melena. No history of IBD. Previously underwent cholecystectomy. No recent travel or sick contacts. CT abdomen/pelvis (non-contrast) shows: * Ventral wall hernia containing small and large bowel (15.1 x 7.6 cm) * Liver with cirrhotic morphology * Moderate stool burden in colon * No signs of obstruction, perforation, or free fluid Manual reduction of hernia was attempted at bedside . She remains hemodynamically stable, afebrile, and tolerating minimal oral intake. No antibiotics currently administered. BRIEF GIST OF TODAY'S COURSE * Hernia appears reducible at bedside; no acute surgical abdomen. * No fever or leukocytosis; conservative management initiated. * Constipation regimen initiated (Colace, Miralax, Lactulose, Fleet Enema). * Patient remains NPO for surgical evaluation. * Labs show normal LFTs, low albumin (4.6), normal bilirubin, and mildly low calcium. * CT reveals cirrhotic liver morphology, raising suspicion of undiagnosed chronic liver disease. Past Medical History Hypertension, Pre-diabetes Past Surgical History Cholecystectomy Family History: FH: cancer G8 MOTHER Family History Non-contributory Social History Non-smoker, no alcohol, no illicit drug use Allergies: Coded Allergies: NO KNOWN ALLERGIES (Unverified , 02/03/19) Home Meds Active Scripts Potassium Chloride (Klor-Con M10) 10 Meq Tab, 1 TAB PO DAILY, #7 TAB 0 Refills Prov:ISAIAS DOTY MD 07/29/20 Furosemide (Furosemide) 20 Mg Tab, 1 TAB PO DAILY, #7 TAB 0 Refills Prov:ISAIAS DOTY MD 07/29/20 Methylprednisolone (Medrol Dosepak) 4 Mg Bakari, 4 MG PO UD, #21 TAB UAD Prov:ISAIAS DOTY MD 07/28/20 Zinc Sulfate (Zinc Sulfate) 220 Mg Tab, 220 MG PO DAILY for 30 Days, #30 TAB Prov:ISAIAS DOTY MD 07/28/20 Pantoprazole Sodium Sesquihydr (Pantoprazole Sodium) 40 Mg Tab, 40 MG PO DAILY for 30 Days, #30 TAB Prov:ISAIAS DOTY MD 07/28/20 Cholecalciferol (Vitamin D3 Super Strength) 2,000 Unit Cap, 4000 UNIT PO DAILY for 30 Days, #60 CAP Prov:ISAIAS DOTY MD 07/28/20 Ascorbic Acid (Gnp Vitamin C W/Allyson Hips) 1,000 Mg Tab, 1000 MG PO DAILY for 30 Days, #30 TAB Prov:ISAIAS DOTY MD 07/28/20 Albuterol Sulfate (VENTOLIN MDI) 90 Mcg Ih, 90 MCG IN TID, #1 INH Prov:ISAIAS DOTY MD 07/28/20 Current Medications Current Medications Medications (Trade) Dose Ordered Sig/Samm Route PRN Reason Start Time Stop Time Status Last Admin Acetaminophen/ Hydrocodone Bitart ([place] 5/325MG Tab) 1 tab Q4HP PRN PO MODERATE PAIN (4-6 PAIN SCALE) 05/07/25 20:15 05/07/25 23:17 Temazepam (Restoril) 15 mg QHSP PRN PO FOR INSOMNIA 05/07/25 20:15 Ondansetron HCl (Zofran) 4 mg Q4HP PRN IV NAUSEA / VOMITING 05/07/25 20:15 05/08/25 08:59 Acetaminophen (Tylenol Tablet) 650 mg Q6HP PRN PO PAIN SCALE 1-3 OR TEMP>100.4 05/07/25 20:15 Docusate Sodium (Colace Capsule) 100 mg BID PO 05/07/25 22:00 05/08/25 10:06 Albuterol (Ventolin Medneb) 2.5 mg Q6HPRN PRN NEB SHORTNESS OF BREATH 05/07/25 20:15 05/08/25 13:20 DC Furosemide (Lasix Tablet) 20 mg DAILY PO 05/08/25 10:00 05/08/25 10:07 Pantoprazole Sodium (Protonix) 40 mg DAILY IV 05/08/25 10:00 05/08/25 10:06 Losartan Potassium (Cozaar Tablet) 50 mg DAILY PO 05/08/25 10:00 05/08/25 10:07 Polyethylene Glycol (Miralax 17GM Powder) 17 gm DAILY PO 05/09/25 10:00 Lactulose 30 ml BID PO 05/08/25 22:00 Review of Systems * GI: + abdominal pain, + nausea, + vomiting, - melena, - hematemesis * : No dysuria or hematuria * Constitutional: No fevers, chills, or night sweats * CV/Resp: No chest pain or dyspnea * Neuro: No focal deficits or headaches Vital Signs Vital Signs Date Time Temp Pulse Resp B/P (MAP) Pulse Ox O2 Delivery O2 Flow Rate FiO2 05/08/25 10:07 142/79 05/08/25 09:00 98.4 58 16 97 98.4 05/08/25 08:00 Room Air* 0 21 Physical Exam * Vitals: Afebrile, hemodynamically stable * General: No acute distress * HEENT: No icterus, cyanosis * Cardiopulmonary: Normal * Abdomen: Soft, non-distended, reducible ventral hernia appreciated, no rebound or guarding Labs/Diagnostic Data Labs Test 05/08/25 15:10 05/08/25 05:01 05/07/25 16:01 05/07/25 15:37 Range/Units Prothrombin Time 10.8 9.3-11.8 sec Prothrombin Time INR 1.02 0.9-1.15 Activated Partial Thromboplast Time 28.2 24.5-34.5 SEC White Blood Count 6.4 4.4-10.8 10^3/uL Red Blood Count 4.36 4.0-5.20 10^6/uL Hemoglobin 13.4 12.2-16.2 g/dL Hematocrit 40.1 # 36.0-46.0 % Mean Corpuscular Volume 92.0 80.0-100.0 fL Mean Corpuscular Hemoglobin 30.8 28.0-32.0 pg Mean Corpuscular Hemoglobin Concent 33.5 32.0-36.0 g/dL Red Cell Distribution Width 14.3 11.8-14.3 % Platelet Count 142 140-450 10^3/uL Mean Platelet Volume 10.1 6.9-10.8 fL Neutrophils (%) (Auto) 69.0 37.0-80.0 % Lymphocytes (%) (Auto) 21.9 10.0-50.0 % Monocytes (%) (Auto) 7.8 0.0-12.0 % Eosinophils (%) (Auto) 1.0 0.0-7.0 % Basophils (%) (Auto) 0.3 0.0-2.0 % Neutrophils # (Auto) 4.4 1.6-8.6 10 ^3/uL Lymphocytes # (Auto) 1.4 0.4-5.4 10 ^3/uL Monocytes # (Auto) 0.5 0-1.3 10 ^3/uL Eosinophils # (Auto) 0.1 0-0.8 10 ^3/uL Basophils # (Auto) 0 0-0.2 10 ^3/uL Nucleated Red Blood Cells 0.1 % Sodium Level 142 136-145 mmol/L Potassium Level 4.0 3.5-5.1 mmol/L Chloride Level 107 98-107 mmol/L Carbon Dioxide Level 25 20-31 mmol/L Anion Gap 10 5-15 Blood Urea Nitrogen 13 9-23 mg/dL Creatinine 0.69 0.550-1.02 mg/dL Glomerular Filtration Rate Calc 95 >90 mL/min BUN/Creatinine Ratio 18.8 10.0-20.0 Serum Glucose 102 74-106 mg/dL Calcium Level 8.4 L 8.7-10.4 mg/dL Total Bilirubin 0.4 0.2-1.0 mg/dL Aspartate Amino Transferase (AST) 20 13-40 U/L Alanine Aminotransferase (ALT) 11 7-40 U/L Alkaline Phosphatase 98 46-116 U/L Total Protein 7.0 5.7-8.2 g/dL Albumin 4.6 3.2-4.8 g/dL Lipase 36 12-53 U/L Urine Color Light-yellow Yellow Urine Clarity Clear Clear Urine pH 5.0 5.0-9.0 Urine Specific [place] 1.014 1.001-1.035 Urine Protein Negative Negative Urine Ketones Negative Negative Urine Blood Negative Negative /uL Urine Nitrite Negative Negative Urine Bilirubin Negative Negative Urine Urobilinogen Normal Negative mg/dL Urine Leukocyte Esterase Negative Negative /uL Urine RBC 1 0 - 4 /hpf Urine Microscopic WBC 1 0-5 /HPF Urine Squamous Epithelial Cells Few <5 /hpf Urine Bacteria None seen None Seen /hpf Urine Glucose Normal Normal mg/dL Assessment 1.Abdominal Pain, Nausea, Vomiting, No Bowel Movement (Acute Abdominal Pain) * Likely secondary to constipation with ventral hernia involvement, but no current evidence of obstruction or strangulation. * CT A/P shows moderate stool burden and partially distended stomach, with no signs of obstruction. 2. Ventral Wall Hernia Incarcerated, now Reduced * Large (15.1 x 7.6 cm), containing bowel but no signs of ischemia or strangulation. * Surgical team evaluating; currently non-operative management appropriate. * Continue to monitor for signs of recurrence or obstruction. 3. Cirrhotic Liver Morphology (New Finding) * Nodular liver capsule morphology noted on CT; no prior diagnosis of cirrhosis documented. * Consider evaluation for underlying chronic liver disease (Hep panel, PT/INR, Fib-4 score, Ultrasound w elastography). * Albumin 4.6 (normal), normal bilirubin and LFTs at present. 4. Constipation / Bowel Obstruction r/o early or partial SBO * No obstruction noted on imaging. * Moderate stool burden. * Initiated bowel regimen with Colace, Miralax, Lactulose, and PRN Fleet enema. Plan/Recommendation GI-SPECIFIC TREATMENT PLAN Gastrointestinal * Continue bowel regimen: * Colace 100 mg PO BID * Miralax 17g PO daily * Lactulose 30 mL PO BID * Fleet enema PRN * NPO status pending further surgical evaluation #Protonix iv * Monitor abdominal exam Q4H for recurrence or worsening * Stool output documentation and flatus monitoring * Consider GI consult if liver cirrhosis needs further workup (Fibroscan, viral hepatitis, autoimmune panel) Hepatic * Labs: AST/ALT normal, Albumin 4.6, Total Bili 0.4 * GI OUTpatient Follow up in 2-3 weeks for: * Hepatitis B/C panel * Liver US with elastography * MELD score once labs updated (if diagnosis confirmed) * PT/INR, ammonia level if mental status worsens Nutrition / Fluids * Currently NPO assess for resumption of clear liquids after surgical team re- evaluates * Consider starting IV D5 NS + 20 mEq KCl/L @ 07667 mL/hr for hydration if inadequate oral intake Pain/Nausea * Continue: * Acetaminophen 650 mg PO PRN * Ondansetron 4 mg IV Q6H PRN * [place] 5/325 mg PO PRN (moderate pain) reassess need Surgical / Hernia * Surgical consult placed * Manual reduction successful * Continue to monitor for signs of incarceration, recurrence * Evaluate for elective repair once stabilized and not constipated Plan discussed with: Patient, Daughter, Son ENRIQUE MOONEYVA BRADY RESIDENT May 08, 2025 16:57
[2025-05-08] MEDS: LACTULOSE 20Gm/30ML SOLN PO SCH (21:10)
[2025-05-09] VITALS (9 sets, daily range): BP systolic 117–130; BP diastolic 60–70; PULSE 58–89; RESP 16–22; TEMP 97.3–98.4; O2SAT 95–99
[2025-05-09] MEDS ORDERED: LIDOCAINE 1% INJ PF 5ML AMP ONE (09:30)
[2025-05-09] MEDS ORDERED: MIDAZOLAM HCL 2MG/2ML 2ml VIAL (1mg/ml) ONE (09:30)
[2025-05-09] MEDS ORDERED: SODIUM CHLORIDE LOCK 10 ML ONE (09:30)
[2025-05-09] MEDS ORDERED: KETAMINE 50mg/ML 10ml Vial 10 ML ONE (09:30)
[2025-05-09] MEDS ORDERED: ONDANSETRON HCL 4 MG/2 ML VIAL ONE (09:30)
[2025-05-09] MEDS ORDERED: LIDOCAINE HCL 2% TOP JELLY 5ML TOP ONE (09:30)
[2025-05-09] MEDS ORDERED: HYDROmorphone HCL 2 MG/ML VL/or syr ONE (09:30)
[2025-05-09] MEDS ORDERED: fentaNYL CITRATE 100 MCG/2 ML VL ONE (09:30)
[2025-05-09] MEDS ORDERED: PROPOFOL 10 MG/ML 20 ML IV ONE ×2 (09:30→11:34)
[2025-05-09] MEDS ORDERED: ROCURONIUM 10MG/ML 10ML VIAL IV ONE (09:30)
[2025-05-09] MEDS ORDERED: MORPHINE SULFATE 4 MG/ML SYR/VIAL IV PRN (09:45)
[2025-05-09] MEDS ORDERED: HYDROmorphone HCL 2 MG/ML VL/or syr IV PRN (09:45)
[2025-05-09] MEDS ORDERED: MORPHINE SULFATE INJ 2 MG/ml SYRG IV PRN (09:45)
[2025-05-09] MEDS: POLYETHYLENE GLYCOL 17 GM PWDR PO SCH (10:00)
[2025-05-09] MEDS: LIDOCAINE 1% HCL (LOCAL ANESTH.) INJ 20ML MDV ONE (10:11)
[2025-05-09] MEDS: ceFAZolin 1GM VL ONE (10:54)
[2025-05-09] MEDS: BUPIVACAINE 0.75% INJ 10ML MPV SDV IJ ONE (10:54)
[2025-05-09] MEDS: ceFAZolin 2 GM/D5W50ml 50 ML IV ONE (11:08)
[2025-05-09] MEDS ORDERED: SUGAMMADEX 200mg/2ml Vial (100MG/ML) IV ONE (11:37)
--- NOTE | 2025-05-09 12:29 | DVHOP2 ---
Operative Report [id number] POST INCISIONAL VENTRAL HERNIA MORE THAN 10 CMS OPEN REPAIR ABOVE WITH MESH B/L MUSCLE COMPONENT SEPARATION ONE DRAIN EBL 25 CC NO COMPLICATIONS ABD BINDER STABLE TRANSFER TO RECOVERY ROOM ADRIANA ARMSTRONG MD May 09, 2025 12:29
--- NOTE | 2025-05-09 12:52 | DVHOP ---
DATE OF SURGERY: 05/09/2025 PREOPERATIVE DIAGNOSIS: Post-incisional upper abdomen ventral hernia. POSTOPERATIVE DIAGNOSIS: Post-incisional upper abdomen ventral hernia. PROCEDURES: Open repair of this ventral hernia measuring 10 cm with a mesh placement and bilateral muscle component separation, lysis of adhesions. SURGEON: Zack Freeman MD CSM CONSULTANT: None. ANESTHESIA: General. ESTIMATED BLOOD LOSS: Close to 25 mL. DRAINS: One drain was used. COMPLICATIONS: No complications were encountered. DESCRIPTION OF PROCEDURE: The patient was prepped and draped in the usual sterile fashion in the supine position and a vertical midline incision was applied supraumbilically overlying the hernia protrusion. It was taken down to the deeper tissues. The hernia sac was dissected out and placed back into the abdomen. The preperitoneal space was developed and no injuries occurred to the bowel at any time. A large size Ventralex mesh was applied. The hernia size was more than 10 cm. It was taken down to the deeper tissues. The fascia was exposed on all sides. The Ventralex mesh was placed and was secured in place using Prolene suture in all four quadrants and then the fascial edges were brought together after the bilateral muscle component separation was carried out, right side first, left side next, making sure that the neurovascular bundles were kept out of harm's way and the fascial edges were brought together using Prolene suture in interrupted fashion, reinforced with Vicryl suture and after this was done, a size 19-Oral drainage was placed to drain the subcutaneous tissues to bring her from the left lower quadrant as a separate incision and securing it with a silk suture. The wound itself was brought together using Vicryl suture for the subcutaneous tissues and 3-0 Monocryl suture for skin closure in a subcuticular fashion. Surgical glue was applied. Steri-Strips were applied. The patient tolerated the procedure well. She was taken back to the recovery room in stable condition. MD CAR Shook/STACEY TID: [id number] RECEIPT: [id number] cc: Uzma Morales MD
[2025-05-09] MEDS: HYDROmorphone HCL 2 MG/ML VL/or syr IV PRN (12:58)
[2025-05-09] MEDS: HYDROmorphone HCL 2 MG/ML VL/or syr ONE (13:11)
--- NOTE | 2025-05-09 13:31 | DVHPN2 ---
Subjective Abdominal hernia surgery today Changes from previous H/P or p: Changes Objective Vitals Vital Signs Date Time Temp Pulse Resp B/P (MAP) Pulse Ox O2 Delivery O2 Flow Rate FiO2 05/09/25 13:18 73 18 133/62 05/09/25 12:29 99 Mask 6.0 05/09/25 12:29 99 05/09/25 09:18 97.8 97.8 Intake/Output Intake and Output 05/09/25 07:00 Intake Total 715 ml Balance 715 ml Intake Oral 715 ml # Voids 7 General Appearance: Alert, Oriented X3, Cooperative, No acute distress Lungs: Clear to auscultation, Normal air movement Cardiovascular: Regular rate, Normal S1, Normal S2 Abdomen: Normal bowel sounds, Soft, No tenderness Extremities: No edema Medications Current Medications Medications Dose Ordered Sig/Samm Route Start Time Stop Time Status Last Admin Dose Admin Acetaminophen/ Hydrocodone Bitart 1 tab Q4HP PRN PO 05/07/25 20:15 05/07/25 23:17 1 TAB Temazepam 15 mg QHSP PRN PO 05/07/25 20:15 Ondansetron HCl 4 mg Q4HP PRN IV 05/07/25 20:15 05/08/25 08:59 4 MG Acetaminophen 650 mg Q6HP PRN PO 05/07/25 20:15 Docusate Sodium 100 mg BID PO 05/07/25 22:00 05/08/25 21:10 100 MG Furosemide 20 mg DAILY PO 05/08/25 10:00 05/08/25 10:07 20 MG Pantoprazole Sodium 40 mg DAILY IV 05/08/25 10:00 05/08/25 10:06 40 MG Losartan Potassium 50 mg DAILY PO 05/08/25 10:00 05/08/25 10:07 50 MG Polyethylene Glycol 17 gm DAILY PO 05/09/25 10:00 Lactulose 30 ml BID PO 05/08/25 22:00 05/08/25 21:10 30 ML Morphine Sulfate 2 mg Q4H PRN IV 05/09/25 09:45 05/09/25 13:46 Laboratory Results Laboratory Tests 05/08/25 05:01 Coagulation Test 05/08/25 15:10 Prothrombin Time 10.8 sec (9.3-11.8) Prothrombin Time INR 1.02 (0.9-1.15) Activated Partial Thromboplast Time 28.2 SEC (24.5-34.5) Urinalysis Test 05/07/25 15:37 Urine Color Light-yellow (Yellow) Urine Clarity Clear (Clear) Urine pH 5.0 (5.0-9.0) Urine Specific [place] 1.014 (1.001-1.035) Urine Protein Negative (Negative) Urine Ketones Negative (Negative) Urine Blood Negative /uL (Negative) Urine Nitrite Negative (Negative) Urine Bilirubin Negative (Negative) Urine Urobilinogen Normal mg/dL (Negative) Urine Leukocyte Esterase Negative /uL (Negative) Urine RBC 1 /hpf (0 - 4) Urine Microscopic WBC 1 /HPF (0-5) Urine Squamous Epithelial Cells Few /hpf (<5) Urine Bacteria None seen /hpf (None Seen) Urine Glucose Normal mg/dL (Normal) Assessment/Plan Assessment/Plan Abdominal ventral hernia Hypertension Obesity Plan Surgical consult NPO after midnight EKG Chest x-ray PT and PTT Resume home medications Monitor closely Full code 05/09/2025: Continue the current management Pain control Clear liquid diet Monitor closely Plan discussed with: Patient My Orders Orders - LEON RDZ MD Procedure Category Date Status Time Chest Portable XY 05/08/25 Resulted 14:30 Electrocardigram EKG 05/08/25 Logged 14:31 Code Status CODE 05/08/25 Transmitted 14:33 Date of Service: May 09, 2025 Billing Provider: LEON RDZ MD Common Visit Codes: [id number] INP/OBS CARE(MOD) LEON RDZ MD May 09, 2025 13:31
--- NOTE | 2025-05-09 15:04 | DVHPN2 ---
Progress Note Date Seen: May 09, 2025 Resident Creating Document: JEWELS MOONEY RESIDENT Has the PT tested + for MRSA If YES, has PT been informed?: No Medical Necessity Reason Pt with a Central, PICC or Fol: No Subjective Review of Systems 69-year-old female with PMH of hypertension, pre-diabetes, and prior cholecystectomy, was admitted with 2-day history of diffuse abdominal pain, distension, nausea, vomiting, and no bowel movement. CT revealed large post- incisional ventral hernia (15.1 x 7.6 cm) with cirrhotic liver morphology and no evidence of bowel obstruction. she underwent: * Open mesh repair with bilateral component separation * Lysis of adhesions, single drain placement, estimated blood loss 25 mL * No intraoperative complications Today, patient is clinically stable. She had multiple bowel movements overnight, and no nausea, vomiting, or abdominal pain is reported. Pain well controlled with PO meds. No signs of ileus, peritonitis, or bowel injury post-op. BRIEF GIST OF TODAYS COURSE * Post-op status is stable after open ventral hernia repair with mesh * GI symptoms resolved: Abdominal pain, nausea, vomiting fully resolved * Bowel function returned with multiple BMs overnight * No antibiotics were administered post-op (non-infectious hernia) * Clear liquids started and tolerated. Diet post surgery to be decided by surgery team. * Drain output monitored no signs of active bleeding or infection Objective vital signs Vital Sign Date Time Temp Pulse Resp B/P (MAP) Pulse Ox O2 Delivery O2 Flow Rate FiO2 05/09/25 13:18 73 18 133/62 05/09/25 12:29 99 Mask 6.0 05/09/25 12:29 99 05/09/25 09:18 97.8 97.8 Total Intake and Output 05/08/25 05/08/25 05/09/25 15:00 23:00 07:00 Intake Total 355 ml 360 ml Balance 355 ml 360 ml medications Current Medications Medications Dose Ordered Sig/Samm Route Start Time Stop Time Status Last Admin Dose Admin Acetaminophen/ Hydrocodone Bitart 1 tab Q4HP PRN PO 05/07/25 20:15 05/07/25 23:17 1 TAB Temazepam 15 mg QHSP PRN PO 05/07/25 20:15 Ondansetron HCl 4 mg Q4HP PRN IV 05/07/25 20:15 05/08/25 08:59 4 MG Acetaminophen 650 mg Q6HP PRN PO 05/07/25 20:15 Docusate Sodium 100 mg BID PO 05/07/25 22:00 05/08/25 21:10 100 MG Furosemide 20 mg DAILY PO 05/08/25 10:00 05/08/25 10:07 20 MG Pantoprazole Sodium 40 mg DAILY IV 05/08/25 10:00 05/08/25 10:06 40 MG Losartan Potassium 50 mg DAILY PO 05/08/25 10:00 05/08/25 10:07 50 MG Polyethylene Glycol 17 gm DAILY PO 05/09/25 10:00 Lactulose 30 ml BID PO 05/08/25 22:00 05/08/25 21:10 30 ML Examination * General: Alert, oriented, no distress * Abdomen: Abd binder in place, well-healing incision, soft, non-distended, normal bowel sounds, no tenderness or peritoneal signs * Drain Site: Clean, minimal serosanguinous output laboratory and microbiology Laboratory Tests 05/08/25 05:01 Test 05/08/25 05:01 Range/Units Serum Glucose 102 74-106 mg/dL Problem List/Assessment/Plan Problem List/Assessment/Plan ASSESSMENT 1. Post-incisional Ventral Hernia Repair * Large hernia >10 cm, reduced and repaired with mesh * POD#1: Clinically stable, tolerating PO, normal BM * No signs of obstruction, ischemia, or infection 2. Acute Abdominal Pain Resolved * Present on admission due to hernia and constipation * No ongoing symptoms post-surgery 3. Post-operative Return of Bowel Function * Multiple BMs reported overnight * No nausea/vomiting, no signs of ileus 4. Cirrhotic Morphology on CT ( Unspecified cirrhosis) * No prior diagnosis of liver disease * Normal LFTs, no ascites, encephalopathy, or jaundice * Hepatitis panel, liver US w/ elastography to be considered outpatient 5. Constipation Resolved * Likely precipitated symptoms and hernia flare * Now passing stool, bowel regimen to be de-escalated TREATMENT PLAN (GI-FOCUSED, SYSTEM-RENEE) Gastrointestinal / Surgical * POD#1 post ventral hernia repair with mesh and component separation * Continue abdominal binder, monitor for hernia recurrence * Drain output monitoring (color, quantity, signs of infection) * Bowel function present document daily * Pain control with PO acetaminophen, [place] PRN * Encourage ambulation and upright positioning after meals * Wound care: continue Steri-Strips, assess for signs of infection or dehiscence Nutrition / Feeds * Surgery team to decide on diet * Monitor for nausea, vomiting, or abdominal distension Hepatic * No overt liver failure * Consider outpatient work-up if cirrhosis suspected: * Hep B/C panel * Liver US w/ elastography * INR, ammonia if AMS develops Prophylaxis * GI prophylaxis: Continue Protonix 40 mg IV daily * Bowel regimen: Hold Lactulose, continue Colace PO BID until fully tolerating solids Case discussed in detail with the attending physician, including the clinical presentation, diagnostic workup, and comprehensive management plan. The patient was present for the discussion and demonstrated understanding of her condition and the proposed plan. Plan discussed with: Patient VINICIOJEWELS BRADY RESIDENT May 09, 2025 15:04
[2025-05-09] MEDS: KETOROLAC TROMETH 30 MG/ML 1ML VIAL IV ONE (16:29)
[2025-05-09] MEDS: METOCLOPRAMIDE HCL 5MG/ml INJ 2ml VIAL IV ONE (16:29)
[2025-05-10] VITALS (7 sets, daily range): BP systolic 115–164; BP diastolic 58–91; PULSE 60–100; RESP 14–18; TEMP 97.7–98.4; O2SAT 96–98
--- NOTE | 2025-05-10 13:29 | DVHPN2 ---
Subjective Doing well Tolerating clear liquids Changes from previous H/P or p: Changes Objective Vitals Vital Signs Date Time Temp Pulse Resp B/P (MAP) Pulse Ox O2 Delivery O2 Flow Rate FiO2 05/10/25 10:12 126/66 05/10/25 08:51 98.4 72 14 98 98.4 05/10/25 08:00 Room Air* 0 21 Intake/Output Intake and Output 05/10/25 07:00 Intake Total 250 ml Output Total 535 ml Balance -285 ml Intake Oral 100 ml IV Total 150 ml Output Urine Total 500 ml Drainage Total 35 ml # Voids 2 # Bowel Movements 1 General Appearance: Alert, Oriented X3, Cooperative, No acute distress Lungs: Clear to auscultation, Normal air movement Cardiovascular: Regular rate, Normal S1, Normal S2 Abdomen: Normal bowel sounds, Soft, No tenderness Extremities: No edema Medications Current Medications Medications Dose Ordered Sig/Samm Route Start Time Stop Time Status Last Admin Dose Admin Acetaminophen/ Hydrocodone Bitart 1 tab Q4HP PRN PO 05/07/25 20:15 05/10/25 07:34 1 TAB Temazepam 15 mg QHSP PRN PO 05/07/25 20:15 Ondansetron HCl 4 mg Q4HP PRN IV 05/07/25 20:15 05/08/25 08:59 4 MG Acetaminophen 650 mg Q6HP PRN PO 05/07/25 20:15 Docusate Sodium 100 mg BID PO 05/07/25 22:00 05/10/25 10:11 100 MG Furosemide 20 mg DAILY PO 05/08/25 10:00 05/10/25 10:12 20 MG Pantoprazole Sodium 40 mg DAILY IV 05/08/25 10:00 05/10/25 10:12 40 MG Losartan Potassium 50 mg DAILY PO 05/08/25 10:00 05/10/25 10:11 50 MG Polyethylene Glycol 17 gm DAILY PO 05/09/25 10:00 05/10/25 10:12 17 GM Lactulose 30 ml BID PO 05/08/25 22:00 05/10/25 10:12 30 ML Laboratory Results Laboratory Tests 05/08/25 05:01 Urinalysis Test 05/07/25 15:37 Urine Color Light-yellow (Yellow) Urine Clarity Clear (Clear) Urine pH 5.0 (5.0-9.0) Urine Specific [place] 1.014 (1.001-1.035) Urine Protein Negative (Negative) Urine Ketones Negative (Negative) Urine Blood Negative /uL (Negative) Urine Nitrite Negative (Negative) Urine Bilirubin Negative (Negative) Urine Urobilinogen Normal mg/dL (Negative) Urine Leukocyte Esterase Negative /uL (Negative) Urine RBC 1 /hpf (0 - 4) Urine Microscopic WBC 1 /HPF (0-5) Urine Squamous Epithelial Cells Few /hpf (<5) Urine Bacteria None seen /hpf (None Seen) Urine Glucose Normal mg/dL (Normal) Assessment/Plan Assessment/Plan Abdominal ventral hernia Hypertension Obesity Plan Surgical consult NPO after midnight EKG Chest x-ray PT and PTT Resume home medications Monitor closely Full code 05/09/2025: Continue the current management Pain control Clear liquid diet Monitor closely 05/10/2025: Advance diet to soft mechanical diet Discussed with Dr. Yaneli Freeman, he will check on her but he would like to keep her 1 more day Discharge planning for tomorrow Plan discussed with: Patient Date of Service: May 10, 2025 Billing Provider: LEON RDZ MD Common Visit Codes: [id number] INP/OBS CARE(MOD) LEON RDZ MD May 10, 2025 13:29
[2025-05-10 15:02] LABS: Hematocrit 42.5 % (36.0-46.0); Hemoglobin 14.1 g/dL (12.2-16.2); Mean Corpuscular Hemoglobin 31.1 pg (28.0-32.0); Mean Corpuscular Volume 93.6 fL (80.0-100.0); Nucleated Red Blood Cells % 0.1 %
[2025-05-10 15:13] LABS: Alanine Aminotransferase 15 U/L (7-40); Albumin 4.3 g/dL (3.2-4.8); Alkaline Phosphatase 78 U/L (46-116); Anion Gap 11 (5-15); BUN/Creatinine Ratio 15.5 (10.0-20.0); Blood Urea Nitrogen 11 mg/dL (9-23); Carbon Dioxide 26 mmol/L (20-31); Potassium 4.4 mmol/L (3.5-5.1); Sodium 145 mmol/L (136-145); Total Protein 6.2 g/dL (5.7-8.2)
[2025-05-10 15:14] LABS: Bilirubin, Total 0.5 mg/dL (0.2-1.0); Calcium 8.6 mg/dL (8.7-10.4); Chloride 108 mmol/L (98-107); Glucose 110 mg/dL (74-106)
--- NOTE | 2025-05-10 16:35 | DVHPN2 ---
Progress Note Date Seen: May 10, 2025 Resident Creating Document: JEWELS MOONEY RESIDENT Has the PT tested + for MRSA If YES, has PT been informed?: No Medical Necessity Reason Pt with a Central, PICC or Fol: No Subjective Review of Systems 69-year-old female with PMH of hypertension, pre-diabetes, and prior cholecystectomy, was admitted with 2-day history of diffuse abdominal pain, distension, nausea, vomiting, and no bowel movement. CT revealed large post- incisional ventral hernia (15.1 x 7.6 cm) with cirrhotic liver morphology and no evidence of bowel obstruction. she underwent: * Open mesh repair with bilateral component separation * Lysis of adhesions, single drain placement, estimated blood loss 25 mL * No intraoperative complications Today, patient is clinically stable. She had multiple bowel movements overnight, and no nausea, vomiting, or abdominal pain is reported. Pain well controlled with PO meds. No signs of ileus, peritonitis, or bowel injury post-op. BRIEF GIST OF TODAYS COURSE * Post-op status is stable after open ventral hernia repair with mesh * GI symptoms resolved: Abdominal pain, nausea, vomiting fully resolved * Bowel function returned with multiple episodes of passing gas. Patient had multiple bowel movements before the surgery * Clear liquids started and tolerated. Diet post surgery to be decided by surgery team. * Drain output monitored no signs of active bleeding or infection Objective vital signs Vital Sign Date Time Temp Pulse Resp B/P (MAP) Pulse Ox O2 Delivery O2 Flow Rate FiO2 05/10/25 13:00 98.0 61 14 140/64 (89) 98 98.0 05/10/25 08:00 Room Air* 0 21 Total Intake and Output 05/09/25 05/09/25 05/10/25 15:00 23:00 07:00 Intake Total 150 ml 100 ml 0 ml Output Total 35 ml 500 ml Balance 115 ml 100 ml -500 ml medications Current Medications Medications Dose Ordered Sig/Samm Route Start Time Stop Time Status Last Admin Dose Admin Acetaminophen/ Hydrocodone Bitart 1 tab Q4HP PRN PO 05/07/25 20:15 05/10/25 07:34 1 TAB Temazepam 15 mg QHSP PRN PO 05/07/25 20:15 Ondansetron HCl 4 mg Q4HP PRN IV 05/07/25 20:15 05/08/25 08:59 4 MG Acetaminophen 650 mg Q6HP PRN PO 05/07/25 20:15 Docusate Sodium 100 mg BID PO 05/07/25 22:00 05/10/25 10:11 100 MG Furosemide 20 mg DAILY PO 05/08/25 10:00 05/10/25 10:12 20 MG Pantoprazole Sodium 40 mg DAILY IV 05/08/25 10:00 05/10/25 10:12 40 MG Losartan Potassium 50 mg DAILY PO 05/08/25 10:00 05/10/25 10:11 50 MG Polyethylene Glycol 17 gm DAILY PO 05/09/25 10:00 05/10/25 10:12 17 GM Lactulose 30 ml BID PO 05/08/25 22:00 05/10/25 10:12 30 ML Examination General: Alert, oriented, no distress * Abdomen: Abd binder in place, well-healing incision, soft, non-distended, normal bowel sounds, no tenderness or peritoneal signs * Drain Site: Clean, minimal serosanguinous output laboratory and microbiology Laboratory Tests 05/10/25 14:45 Test 05/10/25 14:45 Range/Units Serum Glucose 110 H 74-106 mg/dL Problem List/Assessment/Plan Problem List/Assessment/Plan ASSESSMENT 1. Post-incisional Ventral Hernia Repair * Large hernia >10 cm, reduced and repaired with mesh * POD#1: Clinically stable, tolerating PO, normal BM * No signs of obstruction, ischemia, or infection 2. Acute Abdominal Pain Resolved * Present on admission due to hernia and constipation * No ongoing symptoms post-surgery 3. Post-operative Return of Bowel Function * Multiple BMs reported overnight * No nausea/vomiting, no signs of ileus 4. Cirrhotic Morphology on CT ( Unspecified cirrhosis) * No prior diagnosis of liver disease * Normal LFTs, no ascites, encephalopathy, or jaundice * Hepatitis panel, liver US w/ elastography to be considered outpatient 5. Constipation Resolved * Likely precipitated symptoms and hernia flare * Now passing stool, bowel regimen to be de-escalated TREATMENT PLAN (GI-FOCUSED, SYSTEM-RENEE) Gastrointestinal / Surgical * POD#2 post ventral hernia repair with mesh and component separation * Continue abdominal binder, monitor for hernia recurrence * Drain output monitoring (color, quantity, signs of infection) * Bowel function present document daily * Pain control with PO acetaminophen, [place] PRN * Encourage ambulation and upright positioning after meals * Wound care: continue Steri-Strips, assess for signs of infection or dehiscence Nutrition / Feeds * Surgery team to decide on diet * Monitor for nausea, vomiting, or abdominal distension Hepatic * No overt liver failure * Consider outpatient work-up if cirrhosis suspected: * Hep B/C panel * Liver US w/ elastography * INR, ammonia if AMS develops Prophylaxis * GI prophylaxis: Continue Protonix 40 mg IV daily * Bowel regimen: Lactulose, continue Colace PO BID Case discussed in detail with the attending physician, including the clinical presentation, diagnostic workup, and comprehensive management plan. The patient was present for the discussion and demonstrated understanding of her condition and the proposed plan. Plan discussed with: Patient, Spouse JEWELS MOONEY RESIDENT May 10, 2025 16:35
[2025-05-10] MEDS: ACETAMINOPHEN 325 MG TAB PO PRN (19:47)
[2025-05-10] MEDS: TEMAZEPAM 15 MG CAP PO PRN (21:15)
--- NOTE | 2025-05-10 23:16 | DVHPN2 ---
Progress Note Date Seen: May 10, 2025 Has the PT tested + for MRSA If YES, has PT been informed?: No Medical Necessity Reason Pt with a Central, PICC or Fol: No Objective vital signs Vital Sign Date Time Temp Pulse Resp B/P (MAP) Pulse Ox O2 Delivery O2 Flow Rate FiO2 05/10/25 20:00 74 Nasal Cannula* 2 28 05/10/25 17:00 98.1 14 132/68 (89) 96 98.1 Total Intake and Output 05/09/25 05/09/25 05/10/25 15:00 23:00 07:00 Intake Total 150 ml 100 ml 0 ml Output Total 35 ml 500 ml Balance 115 ml 100 ml -500 ml medications Current Medications Medications Dose Ordered Sig/Samm Route Start Time Stop Time Status Last Admin Dose Admin Acetaminophen/ Hydrocodone Bitart 1 tab Q4HP PRN PO 05/07/25 20:15 05/10/25 07:34 1 TAB Temazepam 15 mg QHSP PRN PO 05/07/25 20:15 05/10/25 21:15 15 MG Ondansetron HCl 4 mg Q4HP PRN IV 05/07/25 20:15 05/08/25 08:59 4 MG Acetaminophen 650 mg Q6HP PRN PO 05/07/25 20:15 05/10/25 19:47 650 MG Docusate Sodium 100 mg BID PO 05/07/25 22:00 05/10/25 19:49 100 MG Furosemide 20 mg DAILY PO 05/08/25 10:00 05/10/25 10:12 20 MG Pantoprazole Sodium 40 mg DAILY IV 05/08/25 10:00 05/10/25 10:12 40 MG Losartan Potassium 50 mg DAILY PO 05/08/25 10:00 05/10/25 10:11 50 MG Polyethylene Glycol 17 gm DAILY PO 05/09/25 10:00 05/10/25 10:12 17 GM Lactulose 30 ml BID PO 05/08/25 22:00 05/10/25 19:49 30 ML laboratory and microbiology Laboratory Tests 05/10/25 14:45 Test 05/10/25 14:45 Range/Units Serum Glucose 110 H 74-106 mg/dL Problem List/Assessment/Plan Problem List/Assessment/Plan AFEBRILE VSS ABD SOFT VENTRAL HERNIA REMAINS REDUCED WOUND HEALING NO COMPLICATIONS Plan discussed with: Patient ADRIANA ARMSTRONG MD May 10, 2025 23:16
[2025-05-11 01:00] VITALS: BP 124/76; PULSE 71; RESP 16; TEMP 98.1; O2SAT 90
[2025-05-11 08:00] VITALS: PULSE 77
[2025-05-11 09:00] VITALS: BP 127/59; PULSE 77; RESP 20; TEMP 97.2; O2SAT 92
--- NOTE | 2025-05-11 11:27 | DVHPN2 ---
Progress Note Date Seen: May 11, 2025 Has the PT tested + for MRSA If YES, has PT been informed?: No Medical Necessity Reason Pt with a Central, PICC or Fol: No Objective vital signs Vital Sign Date Time Temp Pulse Resp B/P (MAP) Pulse Ox O2 Delivery O2 Flow Rate FiO2 05/11/25 10:07 121/59 05/11/25 09:00 97.2 77 20 92 97.2 05/10/25 20:00 Nasal Cannula* 2 28 Total Intake and Output 05/10/25 05/10/25 05/11/25 15:00 23:00 07:00 Intake Total 1150 ml 600 ml Output Total 40 ml Balance -40 ml 1150 ml 600 ml medications Current Medications Medications Dose Ordered Sig/Samm Route Start Time Stop Time Status Last Admin Dose Admin Acetaminophen/ Hydrocodone Bitart 1 tab Q4HP PRN PO 05/07/25 20:15 05/10/25 07:34 1 TAB Temazepam 15 mg QHSP PRN PO 05/07/25 20:15 05/10/25 21:15 15 MG Ondansetron HCl 4 mg Q4HP PRN IV 05/07/25 20:15 05/08/25 08:59 4 MG Acetaminophen 650 mg Q6HP PRN PO 05/07/25 20:15 05/10/25 19:47 650 MG Docusate Sodium 100 mg BID PO 05/07/25 22:00 05/11/25 10:07 100 MG Furosemide 20 mg DAILY PO 05/08/25 10:00 05/11/25 10:06 20 MG Pantoprazole Sodium 40 mg DAILY IV 05/08/25 10:00 05/11/25 10:06 40 MG Losartan Potassium 50 mg DAILY PO 05/08/25 10:00 05/11/25 10:07 50 MG Polyethylene Glycol 17 gm DAILY PO 05/09/25 10:00 05/11/25 10:07 17 GM Lactulose 30 ml BID PO 05/08/25 22:00 05/11/25 10:06 30 ML laboratory and microbiology Laboratory Tests 05/10/25 14:45 Test 05/10/25 14:45 Range/Units Serum Glucose 110 H 74-106 mg/dL Problem List/Assessment/Plan Problem List/Assessment/Plan AFEBRILE VSS ABD SOFT VENTRAL HERNIA REMAINS REDUCED WOUND HEALING NO COMPLICATIONS AMBULATING CLEARED FOR DISCHARGE INSTRUCTIONS RE DIET ACTIVITY F/UP DRAIN CARE GIVEN FAMILY AND NURSE AT BEDSIDE Plan discussed with: Patient, Other ADRIANA ARMSTRONG MD May 11, 2025 11:27
--- NOTE | 2025-05-11 11:55 | DVHPN2 ---
Progress Note - Dictate Date Seen: May 11, 2025 Has the PT tested + for MRSA If YES, has PT been informed?: No Medical Necessity Reason Pt with a Central, PICC or Fol: No Subjective No new complaints, patient awake and alert Her dressing is dry and she has a drainage tube in place No nausea vomiting and she is tolerating a diet Be drainage 40 mL Patient had one bowel movement vital signs Vital Sign Date Time Temp Pulse Resp B/P (MAP) Pulse Ox O2 Delivery O2 Flow Rate FiO2 05/11/25 10:07 121/59 05/11/25 09:00 97.2 77 20 92 97.2 05/10/25 20:00 Nasal Cannula* 2 28 Total Intake and Output 05/10/25 05/10/25 05/11/25 15:00 23:00 07:00 Intake Total 1150 ml 600 ml Output Total 40 ml Balance -40 ml 1150 ml 600 ml medications Current Medications Medications Dose Ordered Sig/Samm Route Start Time Stop Time Status Last Admin Dose Admin Acetaminophen/ Hydrocodone Bitart 1 tab Q4HP PRN PO 05/07/25 20:15 05/10/25 07:34 1 TAB Temazepam 15 mg QHSP PRN PO 05/07/25 20:15 05/10/25 21:15 15 MG Ondansetron HCl 4 mg Q4HP PRN IV 05/07/25 20:15 05/08/25 08:59 4 MG Acetaminophen 650 mg Q6HP PRN PO 05/07/25 20:15 05/10/25 19:47 650 MG Docusate Sodium 100 mg BID PO 05/07/25 22:00 05/11/25 10:07 100 MG Furosemide 20 mg DAILY PO 05/08/25 10:00 05/11/25 10:06 20 MG Pantoprazole Sodium 40 mg DAILY IV 05/08/25 10:00 05/11/25 10:06 40 MG Losartan Potassium 50 mg DAILY PO 05/08/25 10:00 05/11/25 10:07 50 MG Polyethylene Glycol 17 gm DAILY PO 05/09/25 10:00 05/11/25 10:07 17 GM Lactulose 30 ml BID PO 05/08/25 22:00 05/11/25 10:06 30 ML objective General Appearance: Alert, Oriented X3, Cooperative, No acute distress Lungs: Clear to auscultation, Normal air movement Cardiovascular: Regular rate, Normal S1, Normal S2 Abdomen: Normal bowel sounds, Soft, No tenderness, dry dressing Extremities: No edema laboratory and microbiology Laboratory Tests 05/10/25 14:45 Test 05/10/25 14:45 Range/Units Serum Glucose 110 H 74-106 mg/dL Problems(with codes): (1) Constipation (2) Intractable abdominal pain (3) Ventral hernia Prognosis Plan Discharge planning is in progress Patient was given my contact information to follow up in my office in two 8-12 weeks for elective colonoscopy Once again thank you for allowing me to participate in the care of this patient Plan discussed with: Patient, Daughter, Other (Dr Yaneli Freeman) DAVON FREEMAN MD May 11, 2025 11:55
[2025-05-11 13:00] VITALS: BP 126/60; PULSE 67; RESP 20; TEMP 98.1; O2SAT 90
[2025-05-11] MEDS ORDERED: ACE3T PO (15:13)
[2025-05-11] MEDS ORDERED: LOSA-534 PO (15:16)
--- NOTE | 2025-05-11 15:20 | DVHDS2 ---
Discharge Summary Date of Admission May 07, 2025 at 19:59 Date of Discharge: May 11, 2025 Admitting Diagnosis Ventral hernia Labs/Diagnostic Data: Laboratory Results Test 05/10/25 14:45 05/08/25 15:10 05/07/25 16:01 05/07/25 15:37 White Blood Count 11.2 10^3/uL (4.4-10.8) Red Blood Count 4.54 10^6/uL (4.0-5.20) Hemoglobin 14.1 g/dL (12.2-16.2) Hematocrit 42.5 % (36.0-46.0) Mean Corpuscular Volume 93.6 fL (80.0-100.0) Mean Corpuscular Hemoglobin 31.1 pg (28.0-32.0) Mean Corpuscular Hemoglobin Concent 33.2 g/dL (32.0-36.0) Red Cell Distribution Width 14.9 % (11.8-14.3) Platelet Count 178 10^3/uL (140-450) Mean Platelet Volume 10.1 fL (6.9-10.8) Neutrophils (%) (Auto) 77.2 % (37.0-80.0) Lymphocytes (%) (Auto) 14.0 % (10.0-50.0) Monocytes (%) (Auto) 8.2 % (0.0-12.0) Eosinophils (%) (Auto) 0.2 % (0.0-7.0) Basophils (%) (Auto) 0.4 % (0.0-2.0) Neutrophils # (Auto) 8.6 10 ^3/uL (1.6-8.6) Lymphocytes # (Auto) 1.6 10 ^3/uL (0.4-5.4) Monocytes # (Auto) 0.9 10 ^3/uL (0-1.3) Eosinophils # (Auto) 0 10 ^3/uL (0-0.8) Basophils # (Auto) 0 10 ^3/uL (0-0.2) Nucleated Red Blood Cells 0.1 % Sodium Level 145 mmol/L (136-145) Potassium Level 4.4 mmol/L (3.5-5.1) Chloride Level 108 mmol/L (98-107) Carbon Dioxide Level 26 mmol/L (20-31) Anion Gap 11 (5-15) Blood Urea Nitrogen 11 mg/dL (9-23) Creatinine 0.71 mg/dL (0.550-1.02) Glomerular Filtration Rate Calc 93 mL/min (>90) BUN/Creatinine Ratio 15.5 (10.0-20.0) Serum Glucose 110 mg/dL (74-106) Calcium Level 8.6 mg/dL (8.7-10.4) Total Bilirubin 0.5 mg/dL (0.2-1.0) Aspartate Amino Transferase (AST) 32 U/L (13-40) Alanine Aminotransferase (ALT) 15 U/L (7-40) Alkaline Phosphatase 78 U/L (46-116) Total Protein 6.2 g/dL (5.7-8.2) Albumin 4.3 g/dL (3.2-4.8) Prothrombin Time 10.8 sec (9.3-11.8) Prothrombin Time INR 1.02 (0.9-1.15) Activated Partial Thromboplast Time 28.2 SEC (24.5-34.5) Lipase 36 U/L (12-53) Urine Color Light-yellow (Yellow) Urine Clarity Clear (Clear) Urine pH 5.0 (5.0-9.0) Urine Specific [place] 1.014 (1.001-1.035) Urine Protein Negative (Negative) Urine Ketones Negative (Negative) Urine Blood Negative /uL (Negative) Urine Nitrite Negative (Negative) Urine Bilirubin Negative (Negative) Urine Urobilinogen Normal mg/dL (Negative) Urine Leukocyte Esterase Negative /uL (Negative) Urine RBC 1 /hpf (0 - 4) Urine Microscopic WBC 1 /HPF (0-5) Urine Squamous Epithelial Cells Few /hpf (<5) Urine Bacteria None seen /hpf (None Seen) Urine Glucose Normal mg/dL (Normal) Other Laboratory Tests 05/10/25 14:45 Brief Hx & Hospital Course: History of Present Illness 69-year-old female presents for evaluation of abdominal pain. Patient endorses a two day history of diffuse abdominal pain/feeling bloated with associated nausea. She also reports being constipated for the last two days. No fever or chills. No cardiac or respiratory complaints. Course of hospitalization: Patient was seen by General surgery, undergoing ventral hernia repair. Patient is now tolerating oral intake, passing gas as well as having bowel movements. Patient has been cleared for discharge. She will be continued on regular diet, as well as her previous home medications. Patient will be prescribed Tylenol No. 3 for pain not alleviated by [id number] Tylenol. She will follow up with her PCP in 1-2 weeks as well as the surgeon in 1-2 weeks. She will empty her CHARLIE drain daily, which education will be provided by the primary nurse. She is also instructed not to lift anything greater than 5 lb until cleared by the surgeon. Patient has a family are agreeable with discharge plan. All questions answered. Physical examination General: Alert and Oriented x3. No acute distress. Well-nourished. Obese Eyes: EOMI. Anicteric. HENT: Moist mucous membranes. Lungs: Clear to auscultation bilaterally. No accessory muscle use. Cardiovascular: Regular rate and rhythm. No murmur. No JVD. Abdomen: Soft, non-tender and non-distended. No palpable masses. Abdominal dressing dry and intact Extremities: No edema. Non-tender. Skin: No rashes or lesions. Warm. Neurologic: No focal neurological deficits. CN II-XII grossly intact, but not individually tested. Psychiatric: Cooperative. Appropriate mood and affect. Total time spent with patient discussing and formulating plan of care: 35 minutes. This medical document was created using an electronic medical record system with [employer] dictation system. Although this document has been carefully reviewed, there may still be some phonetic and typographical errors. These areas are purely typographical due to imperfections of the software programs, and do not reflect any compromise in the patient's medical care. Consults/Reason for consult General surgery: Ventral hernia Operations or Procedures Ventral hernia repair Condition at Discharge: Fair Final Diagnosis/Problems List Ventral hernia Secondary diagnosis: Obesity Primary hypertension Discharge Disposition: Home Discharge Instruct/Medications Diet: Regular Activity: See Comment Activity comment: Do not lift anything greater than 5 lb Follow Up/Referral: Follow up with Dr. hopper, PCP in 1-2 weeks Follow up with Dr. Hira Freeman in 1-2 weeks Medications: Continue all previous home medications Tylenol # 3. Q.8 hours as needed for [id number] pain Scheduled Albuterol Sulfate (Ventolin Mdi), 90 MCG IN TID Ascorbic Acid (Gnp Vitamin C W/Allyson Hips), 1,000 MG PO DAILY Cholecalciferol (Vitamin D3 Super Strength), 4,000 UNIT PO DAILY Furosemide (Furosemide), 1 TAB PO DAILY Losartan Potassium (Losartan Potassium), 1 TAB PO DAILY Methylprednisolone (Medrol Dosepak), 4 MG PO UD Pantoprazole Sodium Sesquihydr (Pantoprazole Sodium), 40 MG PO DAILY Potassium Chloride (Klor-Con M10), 1 TAB PO DAILY Zinc Sulfate (Zinc Sulfate), 220 MG PO DAILY Scheduled PRN Acetaminophen W/ Codeine (Tylenol W/Cod #3), 1 TAB PO Q8HP PRN 36 Discharge Statement: "Patient was advised to return to the ER or call 911 if any headaches, dizziness, shortness of breath, chest pain, abdominal pain, bleeding, fevers, or worsening of medical condition. Patient was counseled about treatment plan, medications, possible side effects, patientverbalized understanding. All questions were answered to the best of my ability. This discharge took greater then 30 minutes in planning, reviewing documentation, counseling the patient, and discussing with other team members." ASSESSMENT ASSESSMENT Assessment Ventral hernia Date of Service: May 11, 2025 Billing Provider: SHAQ RODRIGUEZ NP Common Visit Codes: 47103-BHL/OBS DISCH DAY >30min SHAQ RODRIGUEZ NP May 11, 2025 15:20
[2025-05-11 16:47] VITALS: BP 121/59
[2025-05-11 17:00] VITALS: BP 151/74; PULSE 78; RESP 20; TEMP 98.1; O2SAT 92
== END 2025-05-11 18:00 | disposition home or self-care (01) | DRG 354 ==
LOC: ER 15:08 → OVERFLOW 19:59 → WEST WING 05-08 02:32
PROVIDERS: ADMIT Internal Medicine Geriatric Medicine; ATTEND Internal Medicine Geriatric Medicine
PROC: 0WUF0JZ Supplement Abdominal Wall with Synthetic Substitute, Open Approach (ICD-10-PCS; principal; 2025-05-09 10:14)
DX: K43.2 Incisional hernia without obstruction or gangrene (principal); Z68.41 Body mass index [BMI] 40.0-44.9, adult; E66.9 Obesity, unspecified; K59.00 Constipation, unspecified; I10 Essential (primary) hypertension
CPT/HCPCS: 36415; 71045; 74176; 80048; 80053; 81001; 83690; 85025; 85610; 85730; 96361; 96374; 96375; G0378; J0690; J2003; J2250; J2405; J2470; J2704; J3490

== ENCOUNTER 2025-05-21 17:45 | Emergency (ER) | payer OTHER ==
[~2025-05-21] VITALS: Ht 162.6 cm; Wt 103.2 kg
[~2025-05-21 17:45] MED LIST changes: +ACE3T PO; +LOSA-534 PO
--- NOTE | 2025-05-21 18:36 | ED.PDOC ---
History of Present Illness HPI Comments 69 y/o F, with PMHx of HTN presents to the ED for CC of abdominal pain. Patient states, she has been experiencing symptoms of dizziness with associated headache and nausea sudden onset, 2400 today (05/21/25). Patient reports, that she recently had a hernia repair x1week ago. Patient denies vomiting, fever, chills, or blurred vision. No other symptoms or modifying factors are present at this time. Chief Complaint: Dizziness Time Seen by MD: 18:20 Primary Care Provider: UNK Reviewed Notes: Nurses Notes, Medications, Allergies Allergies: Coded Allergies: NO KNOWN ALLERGIES (Unverified , 02/03/19) Home Meds Active Scripts Losartan Potassium (Losartan Potassium) 50 Mg Tab, 1 TAB PO DAILY, #30 TAB 5 Refills Prov:SHAQ RODRIGUEZ FLUX TUBE ATTENDANT 05/11/25 Acetaminophen W/ Codeine (Tylenol W/Cod #3) 1 Tab Tb, 1 TAB PO Q8HP PRN for 5 Days, #15 TAB Prov:SHAQ RODRIGUEZ FLUX TUBE ATTENDANT 05/11/25 Potassium Chloride (Klor-Con M10) 10 Meq Tab, 1 TAB PO DAILY, #7 TAB 0 Refills Prov:ISAIAS DOTY MD 07/29/20 Furosemide (Furosemide) 20 Mg Tab, 1 TAB PO DAILY, #7 TAB 0 Refills Prov:ISAIAS DOTY MD 07/29/20 Methylprednisolone (Medrol Dosepak) 4 Mg Bakari, 4 MG PO UD, #21 TAB UAD Prov:ISAIAS DOTY MD 07/28/20 Zinc Sulfate (Zinc Sulfate) 220 Mg Tab, 220 MG PO DAILY for 30 Days, #30 TAB Prov:ISAIAS DOTY MD 07/28/20 Pantoprazole Sodium Sesquihydr (Pantoprazole Sodium) 40 Mg Tab, 40 MG PO DAILY for 30 Days, #30 TAB Prov:ISAIAS DOTY MD 07/28/20 Cholecalciferol (Vitamin D3 Super Strength) 2,000 Unit Cap, 4000 UNIT PO DAILY for 30 Days, #60 CAP Prov:ISAIAS DOTY MD 07/28/20 Ascorbic Acid (Gnp Vitamin C W/Allyson Hips) 1,000 Mg Tab, 1000 MG PO DAILY for 30 Days, #30 TAB Prov:ISAIAS DOTY MD 07/28/20 Albuterol Sulfate (VENTOLIN MDI) 90 Mcg Ih, 90 MCG IN TID, #1 INH Prov:ISAIAS DOTY MD 07/28/20 Information Source: Patient Mode of Arrival: Ambulatory Severity: Moderate Timing: Hours Duration: Since onset Prehospital treatment: None Past Medical History PAST MEDICAL HISTORY: HTN Surgical History: Cholecystectomy, Hernia Repair PUBLIC SERVICE REPRESENTATIVE History: No Pertinent PUBLIC SERVICE REPRESENTATIVE History Family History Family History: Unknown Social History Smoker: Non-Smoker Alcohol: Denies ETOH Use Drugs: Denies Drug Use Lives In: Home Constitutional: denies: chills, diaphoresis, fatigue, fever, malaise, sweats, weakness, others EENTM: denies: blurred vision, double vision, ear bleeding, ear discharge, ear drainage, ear pain, ear ringing, eye pain, eye redness, hearing loss, mouth pain, mouth swelling, nasal discharge, nose bleeding, nose congestion, nose pain, photophobia, tearing, throat pain, throat swelling, voice changes, others Respiratory: denies: cough, hemoptysis, orthopnea, SOB at rest, shortness of breath, SOB with excertion, stridor, wheezing, others Cardiovascular: denies: chest pain, dizzy spells, diaphoresis, Dyspnea on exertion, edema, irregular heart beat, left arm pain, lightheadedness, pal pitations, PND, syncope, others Gastrointestinal: reports: nausea; denies: abdomen distended, abdominal pain, blood streaked bowels, constipated, diarrhea, dysphagia, difficulty swallowing, hematemesis, melena, poor appetite, poor fluid intake, rectal bleeding, rectal pain, vomiting, others Genitourinary: denies: abnormal vagina bleeding, burning, dyspareunia, dysuria, flank pain, frequency, hematuria, incontinence, pain, , vagina disc harge, urgency, others Neurological: reports: dizziness, headache; denies: fainting, left sided numbness, left sided weakness, numbness, paresthesia, pre-existing deficit, right sided numbness, right sided weakness, seizure, speech problems, tingling, tremors, weakness, others Musculoskeletal: denies: back pain, gout, joint pain, joint swelling, muscle pain, muscle stiffness, neck pain, others Integumetry: denies: bruises, change in color, change in hair/nails, dryness, laceration, lesions, lumps, rash, wounds, others Allergic/Immunocompromised: denies: Difficulty Healing, Frequent Infections, Hives, Itching, others Hematologic/Lymphatic: denies: anemia, blood clots, easy bleeding, easy bruising, swollen glands, others Endocrine: denies: excessive hunger, excessive sweating, excessive thirst, excessive urination, flushing, intolerance to cold, intolerance to heat, unexplained weight gain, unexplained weight loss, others Psychiatric: denies: anxiety, bipolar disorder, depression, hopeless, panic disorder, schizophrenia, sleepless, suicidal, others All Other Systems: Reviewed and Negative Physical Exam General Appearance: No Apparent Distress, Normal HEENT: Normal ENT Inspection, Pharynx Normal Neck: Full Range of Motion, Non-Tender, Normal, Normal Inspection Respiratory: Chest Non-Tender, Lungs Clear, No Accessory Muscle Use, No Respiratory Distress, Normal Breath Sounds Cardiovascular: No Edema, No Murmur, No Gallop, Normal Peripheral Pulses, Regular Rate/Rhythm Breast Exam: Deferred Gastrointestinal: No Organomegaly, Non Tender, No Pulsatile Mass, Normal Bowel Sounds, Soft Genitalia: Deferred Pelvic: Deferred Rectal: Deferred Extremities: No calf tenderness, Normal capillary refill, Normal inspection, Normal range of motion, Non-tender, No pedal edema Musculoskeletal : Apperance: Normal Neurologic: Alert, cylinder press operator II-XII nml as Tested, No Motor Deficits, Normal Affect, Normal Mood, No Sensory Deficits Cerebellar Function: Normal Reflexes: Normal Skin: Dry, Normal Color, Warm Lymphatic: No Adenopathy Was a procedure done? Was a procedure done?: No Differential Dx Considerations may include: vertigo, dehydration, electrolyte imbalance X-Ray, Labs, Meds, VS Vital Signs Date Time Temp Pulse Resp B/P (MAP) Pulse Ox O2 Delivery O2 Flow Rate FiO2 05/21/25 17:54 74 05/21/25 17:46 98.3 82 20 139/119 96 98.3 Lab Test 05/21/25 18:48 05/21/25 17:55 Range/Units White Blood Count 8.0 4.4-10.8 10^3/uL Red Blood Count 5.14 4.0-5.20 10^6/uL Hemoglobin 15.8 12.2-16.2 g/dL Hematocrit 47.2 H 36.0-46.0 % Mean Corpuscular Volume 91.8 80.0-100.0 fL Mean Corpuscular Hemoglobin 30.7 28.0-32.0 pg Mean Corpuscular Hemoglobin Concent 33.5 32.0-36.0 g/dL Red Cell Distribution Width 14.0 11.8-14.3 % Platelet Count 195 140-450 10^3/uL Mean Platelet Volume 9.6 6.9-10.8 fL Neutrophils (%) (Auto) 72.1 37.0-80.0 % Lymphocytes (%) (Auto) 21.1 10.0-50.0 % Monocytes (%) (Auto) 5.9 0.0-12.0 % Eosinophils (%) (Auto) 0.6 0.0-7.0 % Basophils (%) (Auto) 0.3 0.0-2.0 % Neutrophils # (Auto) 5.8 1.6-8.6 10 ^3/uL Lymphocytes # (Auto) 1.7 0.4-5.4 10 ^3/uL Monocytes # (Auto) 0.5 0-1.3 10 ^3/uL Eosinophils # (Auto) 0 0-0.8 10 ^3/uL Basophils # (Auto) 0 0-0.2 10 ^3/uL Nucleated Red Blood Cells 0.2 % Sodium Level 140 136-145 mmol/L Potassium Level 3.7 3.5-5.1 mmol/L Chloride Level 105 98-107 mmol/L Carbon Dioxide Level 24 20-31 mmol/L Anion Gap 11 5-15 Blood Urea Nitrogen 7 L 9-23 mg/dL Creatinine 0.66 0.550-1.02 mg/dL Glomerular Filtration Rate Calc 96 >90 mL/min BUN/Creatinine Ratio 10.6 10.0-20.0 Serum Glucose 100 74-106 mg/dL Calcium Level 9.0 8.7-10.4 mg/dL POC Glucose 90 70-106 mg/dl X-Ray, Labs, Meds, VS Comment Imaging was reviewed by this provider, there is no obvious pathological or acute disease process. Pending radiology review Labs were reviewed by this provider, no abnormalities Vital signs reviewed by this provider, clinically stable Patient reports abdominal pain is most likely due to her recent surgery. Advised she will need to follow up with her PCP at next available appointment Time of 1ST Reevaluation: 18:50 Reevaluation 1ST: Unchanged Patient Education/Counseling: Diagnosis, Treatment, Need For Follow Up (Follow up with PCP next available appointment. Return to emergency department for 2 hours if symptoms worsen.) Family Education/Counseling: No Family Present SEPSIS Sepsis Screen Date sepsis recognized/suspect: May 21, 2025 Time Sepsis recognized/suspect: 1747 Recent Procedure: No On Antibiotic Therapy: No Respiratory Rate >20: No Heart Rate >90: No Temp<36 C (96.8 F) or >38.3 C: No SBP <90 or MAP <65 mmHG: No New Acute Mental Status Change: No Is the patient on CPAP, BIPAP,: No Physician Orders Chest Portable (05/21/25 18:19) Urinalysis (05/21/25 18:19) Head Without Contrast (05/21/25 18:19) Electrocardigram (05/21/25 18:43) Ketorolac Injection (Toradol Injection) (05/21/25 20:00) Vital Signs Date Time Temp Pulse Resp B/P (MAP) Pulse Ox O2 Delivery O2 Flow Rate FiO2 05/21/25 17:54 74 05/21/25 17:46 98.3 82 20 139/119 96 98.3 Laboratory Tests Test 05/21/25 18:48 White Blood Count 8.0 10^3/uL (4.4-10.8) Departure 1 Departure Time of Disposition: 20:12 Impression: Primary Impression: Dehydration Additional Impressions: Benign positional vertigo Qualified Codes: H81.13 - Benign paroxysmal vertigo, bilateral Headache Qualified Codes: G44.209 - Tension-type headache, unspecified, not intractable Disposition: 01 HOME / SELF CARE / HOMELESS Condition: Fair Discharged With: Self Critical Care Note Critical Care Time?: No Stability Stability form required: No Heart Score Heart Score: Heart Score Response (Comments) Value History N/A 0 EKG N/A 0 Age N/A 0 Risk Factors N/A 0 Troponin N/A 0 Total 0 I personally scribed for SOULEYMANE ROBLES ([email or web address]) on 05/21/25 at 18:36. Electronically submitted by Sakina Guerrero ([email or web address]). SOULEYMANE ROBLES May 21, 2025 18:36
--- NOTE | 2025-05-21 18:47 | DVH ---
CLINICAL HISTORY: DIZZINESS TECHNIQUE: Single view of the chest was obtained. COMPARISON: XY CHEST PORTABLE on DOS: 05/08/25 FINDINGS: The heart size and pulmonary vasculature are normal. The lungs are clear. IMPRESSION: NO ACUTE CARDIOPULMONARY PROCESS.
--- NOTE | 2025-05-21 18:51 | DVH ---
EXAM: CT HEAD WITHOUT CONTRAST INDICATION: DIZZINESS TECHNIQUE: CT of the head without intravenous contrast. Radiation Dose Information: CT Dose: CTDI volume is 54.24 mGy. Dose-length product is 960.51 mGy*cm The dose indicators for CT are the volume Computed Tomography (CT) Dose Index (CTDIvol) and the Dose Length Product (DLP), and are measured in units of mGy and mGy-cm, respectively. These indicators are not patient dose, but values generated from the CT scanner acquisition factors. The report includes radiation exposure data for exposures received during this examination. COMPARISON: CT HEAD WITHOUT CONTRAST on DOS: 02/22/23 FINDINGS: There is no evidence of acute intracranial hemorrhage, extra-axial collection, mass effect, midline s hift, herniation or hydrocephalus. The ventricles, sulci and cisterns are age appropriate. The hernandez-white differentiation is intact. Patchy periventricular and subcortical white matter hypoattenuation is nonspecific but may be related to small vessel ischemic disease. The visualized paranasal sinuses and mastoid air cells are clear. The surrounding soft tissues and osseous structures are unremarkable. IMPRESSION: 1. No acute intracranial abnormality.
[2025-05-21 19:05] LABS: Hematocrit 47.2 % (36.0-46.0); Hemoglobin 15.8 g/dL (12.2-16.2); Mean Corpuscular Hemoglobin 30.7 pg (28.0-32.0); Mean Corpuscular Volume 91.8 fL (80.0-100.0); Nucleated Red Blood Cells % 0.2 %
[2025-05-21 19:17] LABS: Chloride 105 mmol/L (98-107); Potassium 3.7 mmol/L (3.5-5.1); Sodium 140 mmol/L (136-145)
[2025-05-21 19:19] LABS: Anion Gap 11 (5-15)
[2025-05-21 19:20] LABS: BUN/Creatinine Ratio 10.6 (10.0-20.0); Glucose 100 mg/dL (74-106)
[2025-05-21 19:33] LABS: Blood Urea Nitrogen 7 mg/dL (9-23); Calcium 9.0 mg/dL (8.7-10.4); Carbon Dioxide 24 mmol/L (20-31)
[2025-05-21] MEDS: KETOROLAC TROMETH 30 MG/ML 1ML VIAL IM ONE (20:00)
[2025-05-21 20:42] VITALS: BP 129/91; PULSE 96; RESP 16; TEMP 98; O2SAT 95
--- NOTE | 2025-05-23 09:18 | ECG ---
[facility] Test Date: 2025-05-21 Test Time: 17:54:28 Pat Name: MAYELIN PARMAR Department: ED Room: Gender: F Florist Designer: LEEANNA : 1955 Requested By: SOULEYMANE ROBLES Order Number: [id number] Reading MD: Measurements Intervals Recluse Rate: 74 P: 30 AK: 135 QRS: 12 QRSD: 134 T: 1 QT: 430 QTc: 477 Interpretive Statements Sinus rhythm Right bundle branch block Baseline wander in lead(s) II,III,aVF,V1,V6 Please click the below link to view image of tracing.
== END 2025-05-21 20:47 | disposition home or self-care (01) ==
LOC: ER 17:45
DX: E86.0 Dehydration (principal); H81.13 Benign paroxysmal vertigo, bilateral; G44.209 Tension-type headache, unspecified, not intractable; Z79.899 Other long term (current) drug therapy; Z90.49 Acquired absence of other specified parts of digestive tract; Z98.890 Other specified postprocedural states
CPT/HCPCS: 36415; 70450; 71045; 80048; 82947; 85025; 93005; 96372; 99285; J1885; 82962

== ENCOUNTER 2025-05-23 02:41 | Emergency (ER) | payer OTHER ==
[~2025-05-23] VITALS: Ht 157.5 cm; Wt 105.0 kg
[2025-05-23 04:43] LABS: Hematocrit 44.9 % (36.0-46.0); Hemoglobin 15.1 g/dL (12.2-16.2); Mean Corpuscular Hemoglobin 30.5 pg (28.0-32.0); Mean Corpuscular Volume 90.5 fL (80.0-100.0); Nucleated Red Blood Cells % 0.1 %
[2025-05-23 04:53] LABS: Alanine Aminotransferase 16 U/L (7-40); Albumin 4.7 g/dL (3.2-4.8); Alkaline Phosphatase 107 U/L (46-116); Anion Gap 11 (5-15); BUN/Creatinine Ratio 12.5 (10.0-20.0); Bilirubin, Total 0.5 mg/dL (0.2-1.0); Blood Urea Nitrogen 10 mg/dL (9-23); Calcium 9.2 mg/dL (8.7-10.4); Carbon Dioxide 28 mmol/L (20-31); Chloride 102 mmol/L (98-107); Potassium 3.9 mmol/L (3.5-5.1); Sodium 141 mmol/L (136-145); Total Protein 7.6 g/dL (5.7-8.2)
[2025-05-23 04:58] LABS: Glucose 108 mg/dL (74-106)
--- NOTE | 2025-05-23 05:17 | DVH ---
Exam: CT CT AB PEL WO CON-NO ORAL OR IV History: s/p hernia repair, CHARLIE drain problem Comparison Study: CT CT AB PEL WO CON-NO ORAL OR IV on DOS: 05/07/25 Technique: Multidetector spiral CT of the abdomen was performed from lung bases to pubic symphysis. I maging was performed without IV contrast. Axial, coronal and sagittal multiplanar reformats were obta ined from the axial data set by the technologist. Radiation Dose : 1. Abdomen/Pelvis: CTDIvol 23.49 mGy, DLP 1480.95 mGy*cm. Findings: Evaluation of solid organs is limited due to lack of intravenous contrast use. Lung Bases: No acute or significant lung base finding. Normal heart size. No pleural or pericardial effusion. Liver: The liver is normal in size. No focal lesions. Gallbladder and Biliary Tree: Gallbladder is surgically absent. Spleen: Unremarkable Pancreas: The pancreas is grossly normal in appearance. Adrenal Glands: Unremarkable Kidneys: Kidneys are grossly normal without calculi or hydronephrosis. Bladder: Grossly unremarkable for degree of distention. Bowel: The stomach is grossly normal in appearance. Small bowel and colon are normal in caliber and d istribution. The appendix is not visualized; however, no secondary findings of acute appendicitis velma ntified. Ascites: Absent Lymphadenopathy: No mesenteric, retroperitoneal or periportal lymphadenopathy. Abdominal Wall and Mesentery: 6.6 x 3.0 cm complex fluid collection subjacent to the anterior abdomin al wall associated with prior hernia repair. Drainage catheter tip terminates in the left abdominal s ubcutaneous fat and May require repositioning. Vasculature: The visualized abdominal aorta is normal in size and caliber. Evaluation of abdominal a nd pelvic vessels is limited due to lack of intravenous contrast. Pelvic Organs: Unremarkable Musculoskeletal: No aggressive focal bony lesions, acute fractures or dislocation. IMPRESSION: 6.6 x 3.0 cm complex fluid collection subjacent to the anterior abdominal wall associated with prior hernia repair. Drainage catheter tip terminates in the left abdominal subcutaneous fat and May requir e repositioning.
--- NOTE | 2025-05-23 06:26 | ED.PDOC ---
History of Present Illness HPI Comments 69F who is turkish speaking presents to the ER w/ son and with prior MHx of HTN;SHx of Cholecystectomy, hernia repair, umbilical hernia repair x05/09/25 and the c/c of a wound check. Son reports that the CHARLIE drainage was not holding any suctions, and has not informed the Sx which is . Son notes that they informed the pt to call for a follow up when the drainage has 5cc. Denies chill, fever, N/V/D, SOB, CP. No other associated symptoms, modifiers, recent injuries or sick contacts present at this time. Chief Complaint: Wound Check Time Seen by MD: 06:20 Primary Care Provider: UNK Reviewed Notes: Nurses Notes, Medications, Allergies Allergies: Coded Allergies: NO KNOWN ALLERGIES (Unverified , 02/03/19) Home Meds Active Scripts Losartan Potassium (Losartan Potassium) 50 Mg Tab, 1 TAB PO DAILY, #30 TAB 5 Refills Prov:SHAQ RODRIGUEZ TIP SCOURER 05/11/25 Acetaminophen W/ Codeine (Tylenol W/Cod #3) 1 Tab Tb, 1 TAB PO Q8HP PRN for 5 Days, #15 TAB Prov:SHAQ RODRIGUEZ TIP SCOURER 05/11/25 Potassium Chloride (Klor-Con M10) 10 Meq Tab, 1 TAB PO DAILY, #7 TAB 0 Refills Prov:ISAIAS DOTY MD 07/29/20 Furosemide (Furosemide) 20 Mg Tab, 1 TAB PO DAILY, #7 TAB 0 Refills Prov:ISAIAS DOTY MD 07/29/20 Methylprednisolone (Medrol Dosepak) 4 Mg Bakari, 4 MG PO UD, #21 TAB UAD Prov:ISAIAS DOTY MD 07/28/20 Zinc Sulfate (Zinc Sulfate) 220 Mg Tab, 220 MG PO DAILY for 30 Days, #30 TAB Prov:ISAIAS DOTY MD 07/28/20 Pantoprazole Sodium Sesquihydr (Pantoprazole Sodium) 40 Mg Tab, 40 MG PO DAILY for 30 Days, #30 TAB Prov:ISAIAS DOTY MD 07/28/20 Cholecalciferol (Vitamin D3 Super Strength) 2,000 Unit Cap, 4000 UNIT PO DAILY for 30 Days, #60 CAP Prov:ISAIAS DOTY MD 07/28/20 Ascorbic Acid (Gnp Vitamin C W/Allyson Hips) 1,000 Mg Tab, 1000 MG PO DAILY for 30 Days, #30 TAB Prov:ISAIAS DOTY MD 07/28/20 Albuterol Sulfate (VENTOLIN YAHIR) 90 Mcg Ih, 90 MCG IN TID, #1 INH Prov:ISAIAS DOTY MD 07/28/20 Information Source: Patient, Relative (Child) Mode of Arrival: Ambulatory Severity: Moderate Timing: Weeks Duration: Since onset Prehospital treatment: None Past Medical History PAST MEDICAL HISTORY: HTN Surgical History: Cholecystectomy, Hernia Repair BED WORKER History: No Pertinent BED WORKER History Family History Family History: Reviewed,noncontributory to illness, Unknown Social History Smoker: Non-Smoker Alcohol: Denies ETOH Use Drugs: Denies Drug Use Lives In: Home Constitutional: reports: others (CHARLIE not draining after umbilical Hernia Repair Sx); denies: chills, diaphoresis, fatigue, fever, malaise, sweats, weakness EENTM: denies: blurred vision, double vision, ear bleeding, ear discharge, ear drainage, ear pain, ear ringing, eye pain, eye redness, hearing loss, mouth pain, mouth swelling, nasal discharge, nose bleeding, nose congestion, nose pain, photophobia, tearing, throat pain, throat swelling, voice changes, others Respiratory: denies: cough, hemoptysis, orthopnea, SOB at rest, shortness of breath, SOB with excertion, stridor, wheezing, others Cardiovascular: denies: chest pain, dizzy spells, diaphoresis, Dyspnea on exertion, edema, irregular heart beat, left arm pain, lightheadedness, palpitat ions, PND, syncope, others Gastrointestinal: denies: abdomen distended, abdominal pain, blood streaked bow els, constipated, diarrhea, dysphagia, difficulty swallowing, hematemesis, melena, nausea, poor appetite, poor fluid intake, rectal bleeding, rectal pain, vomiting, others Genitourinary: denies: abnormal vagina bleeding, burning, dyspareunia, dysuria, flank pain, frequency, hematuria, incontinence, pain, , vagina discharge, urgency, others Neurological: denies: dizziness, fainting, headache, left sided numbness, left sided weakness, numbness, paresthesia, pre-existing deficit, right sided numbness, right sided weakness, seizure, speech problems, tingling, tremors, weakness, others Musculoskeletal: denies: back pain, gout, joint pain, joint swelling, muscle pain, muscle stiffness, neck pain, others Integumetry: denies: bruises, change in color, change in hair/nails, dryness, laceration, lesions, lumps, rash, wounds, others Allergic/Immunocompromised: denies: Difficulty Healing, Frequent Infections, Hives, Itching, others Hematologic/Lymphatic: denies: anemia, blood clots, easy bleeding, easy bruisi ng, swollen glands, others Endocrine: denies: excessive hunger, excessive sweating, excessive thirst, exce ssive urination, flushing, intolerance to cold, intolerance to heat, unexplained weight gain, unexplained weight loss, others Psychiatric: denies: anxiety, bipolar disorder, depression, hopeless, panic disorder, schizophrenia, sleepless, suicidal, others All Other Systems: Reviewed and Negative Physical Exam General Appearance: Moderate Distress, Obese HEENT: Normal ENT Inspection, Pharynx Normal, TMs Normal Neck: Full Range of Motion, Non-Tender, Normal, Normal Inspection Respiratory: Chest Non-Tender, Lungs Clear, No Accessory Muscle Use, No Respiratory Distress, Normal Breath Sounds Cardiovascular: No Edema, No JVD, No Murmur, No Gallop, Normal Peripheral Pulses, Regular Rate/Rhythm Breast Exam: Deferred Gastrointestinal: No Organomegaly, Non Tender, No Pulsatile Mass, Normal Bowel Sounds, Soft, Other (CHARLIE catheter for hernia repair) Genitalia: Deferred Pelvic: Deferred Rectal: Deferred Extremities: No calf tenderness, Normal capillary refill, Normal inspection, Normal range of motion, Non-tender, No pedal edema Musculoskeletal : Apperance: Normal Neurologic: Alert, equine internship II-XII nml as Tested, No Motor Deficits, Normal Affect, Normal Mood, No Sensory Deficits Cerebellar Function: Normal Reflexes: Normal Skin: Dry, Normal Color, Warm Peripheral Pulses: 3+ Radial (R), 3+ Radial (L) Lymphatic: No Adenopathy Was a procedure done? Was a procedure done?: No Differential Dx Considerations may include: Abscess Electrolyte imbalance X-Ray, Labs, Meds, VS Vital Signs Date Time Temp Pulse Resp B/P (MAP) Pulse Ox O2 Delivery O2 Flow Rate FiO2 05/23/25 05:59 98.2 80 16 130/74 (92) 95 98.2 05/23/25 02:42 98.4 89 18 153/87 96 98.4 Lab Test 05/23/25 04:12 Range/Units White Blood Count 8.6 4.4-10.8 10^3/uL Red Blood Count 4.96 4.0-5.20 10^6/uL Hemoglobin 15.1 12.2-16.2 g/dL Hematocrit 44.9 36.0-46.0 % Mean Corpuscular Volume 90.5 80.0-100.0 fL Mean Corpuscular Hemoglobin 30.5 28.0-32.0 pg Mean Corpuscular Hemoglobin Concent 33.7 32.0-36.0 g/dL Red Cell Distribution Width 14.0 11.8-14.3 % Platelet Count 216 140-450 10^3/uL Mean Platelet Volume 10.0 6.9-10.8 fL Neutrophils (%) (Auto) 72.8 37.0-80.0 % Lymphocytes (%) (Auto) 21.0 10.0-50.0 % Monocytes (%) (Auto) 5.6 0.0-12.0 % Eosinophils (%) (Auto) 0.5 0.0-7.0 % Basophils (%) (Auto) 0.1 0.0-2.0 % Neutrophils # (Auto) 6.3 1.6-8.6 10 ^3/uL Lymphocytes # (Auto) 1.8 0.4-5.4 10 ^3/uL Monocytes # (Auto) 0.5 0-1.3 10 ^3/uL Eosinophils # (Auto) 0 0-0.8 10 ^3/uL Basophils # (Auto) 0 0-0.2 10 ^3/uL Nucleated Red Blood Cells 0.1 % Sodium Level 141 136-145 mmol/L Potassium Level 3.9 3.5-5.1 mmol/L Chloride Level 102 98-107 mmol/L Carbon Dioxide Level 28 20-31 mmol/L Anion Gap 11 5-15 Blood Urea Nitrogen 10 9-23 mg/dL Creatinine 0.80 0.550-1.02 mg/dL Glomerular Filtration Rate Calc 81 >90 mL/min BUN/Creatinine Ratio 12.5 10.0-20.0 Serum Glucose 108 H 74-106 mg/dL Lactic Acid Level 1.4 0.4-2.0 mmol/L Calcium Level 9.2 8.7-10.4 mg/dL Total Bilirubin 0.5 0.2-1.0 mg/dL Aspartate Amino Transferase (AST) 26 13-40 U/L Alanine Aminotransferase (ALT) 16 7-40 U/L Alkaline Phosphatase 107 46-116 U/L Total Protein 7.6 5.7-8.2 g/dL Albumin 4.7 3.2-4.8 g/dL Patient alert. Vitals stable. Came in because her CHARLIE drain is not draining. Answering questions. Ambulating. WBC within normal limits. Hemoglobin within normal limits. Consultation Dr. Freeman. Explained to the patient. Continue monitoring. Time of 1ST Reevaluation: 06:50 Reevaluation 1ST: Unchanged Patient Education/Counseling: Diagnosis, Treatment, Prognosis Family Education/Counseling: No Family Present SEPSIS Sepsis Screen Date sepsis recognized/suspect: May 23, 2025 Time Sepsis recognized/suspect: 241 Recent Procedure: Yes On Antibiotic Therapy: No Respiratory Rate >20: No Heart Rate >90: No Temp<36 C (96.8 F) or >38.3 C: No SBP <90 or MAP <65 mmHG: No New Acute Mental Status Change: No Is the patient on CPAP, BIPAP,: No Physician Orders Ct Ab Pel Wo Con-No Oral Or Iv (05/23/25 03:59) * Surgical Consult (05/23/25 ) * Radiologist Consult (05/23/25 06:33) Vital Signs Date Time Temp Pulse Resp B/P (MAP) Pulse Ox O2 Delivery O2 Flow Rate FiO2 05/23/25 05:59 98.2 80 16 130/74 (92) 95 98.2 05/23/25 02:42 98.4 89 18 153/87 96 98.4 Laboratory Tests Test 05/23/25 04:12 Lactic Acid Level 1.4 mmol/L (0.4-2.0) White Blood Count 8.6 10^3/uL (4.4-10.8) Departure 1 Departure Time of Disposition: 06:39 Impression: Primary Impression: Abscess Disposition: 30 STILL A PATIENT Condition: Good Critical Care Note Critical Care Time?: No Stability Stability form required: No Heart Score Heart Score: Heart Score Response (Comments) Value History N/A 0 EKG N/A 0 Age N/A 0 Risk Factors N/A 0 Troponin N/A 0 Total 0 I personally scribed for SAPNA SANTACRUZ MD ([email or web address]) on 05/23/25 at 06:26. Electronically submitted by Nithin Louise ([email or web address]). SAPNA SANTACRUZ MD May 23, 2025 06:26
[2025-05-23 10:43] VITALS: BP 116/68; PULSE 70; RESP 16; TEMP 98.7; O2SAT 98
== END 2025-05-23 10:46 | disposition home or self-care (01) ==
LOC: ER 02:41
DX: L02.216 Cutaneous abscess of umbilicus (principal); I10 Essential (primary) hypertension; Z48.00 Encounter for change or removal of nonsurgical wound dressing; Z79.899 Other long term (current) drug therapy; Z90.49 Acquired absence of other specified parts of digestive tract; Z98.890 Other specified postprocedural states
CPT/HCPCS: 36415; 74176; 80053; 83605; 85025

== ENCOUNTER 2025-05-27 10:53 | Outpatient (CLI) | payer OTHER ==
[2025-05-27 11:47] LABS: Urine Protein, UAD Negative (Negative)
[2025-05-27 11:53] LABS: Hematocrit 41.4 % (36.0-46.0); Hemoglobin 14.0 g/dL (12.2-16.2); Mean Corpuscular Hemoglobin 30.7 pg (28.0-32.0); Mean Corpuscular Volume 91.0 fL (80.0-100.0); Nucleated Red Blood Cells % 0.1 %
[2025-05-27 12:41] LABS: Triglycerides 134 mg/dL (< 150)
[2025-05-27 12:43] LABS: Cholesterol 123 mg/dL (< 200)
[2025-05-27 12:44] LABS: HDL Cholesterol 31 mg/dL (40-59)
== END 2025-05-27 17:00 | disposition home or self-care (01) ==
LOC: LAB 10:53
PROVIDERS: ATTEND Nurse Practitioner Family
DX: Z12.11 Encounter for screening for malignant neoplasm of colon (principal); I10 Essential (primary) hypertension; E78.5 Hyperlipidemia, unspecified; E55.9 Vitamin D deficiency, unspecified
CPT/HCPCS: 36415; 80061; 81001; 82274; 82306; 83036; 84443; 85025

== ENCOUNTER 2025-08-23 11:09 | Outpatient (CLI) | payer OTHER ==
[2025-08-23 11:51] LABS: Hematocrit 41.9 % (36.0-46.0); Hemoglobin 14.0 g/dL (12.2-16.2); Mean Corpuscular Hemoglobin 30.7 pg (28.0-32.0); Mean Corpuscular Volume 91.7 fL (80.0-100.0); Nucleated Red Blood Cells % 0.2 %
[2025-08-23 12:09] LABS: Alanine Aminotransferase 16 U/L (7-40); Albumin 4.2 g/dL (3.2-4.8); Alkaline Phosphatase 100 U/L (46-116); Anion Gap 9 (5-15); BUN/Creatinine Ratio 21.2 (10.0-20.0); Blood Urea Nitrogen 14 mg/dL (9-23); Calcium 8.9 mg/dL (8.7-10.4); Carbon Dioxide 25 mmol/L (20-31); Glucose 101 mg/dL (74-106); Potassium 4.1 mmol/L (3.5-5.1); Sodium 141 mmol/L (136-145); Total Protein 7.0 g/dL (5.7-8.2); Triglycerides 139 mg/dL (< 150)
[2025-08-23 12:10] LABS: Bilirubin, Total 0.5 mg/dL (0.2-1.0); Chloride 107 mmol/L (98-107); Cholesterol 116 mg/dL (< 200); HDL Cholesterol 35 mg/dL (40-59)
[2025-08-23 14:02] LABS: Urine Protein, UAD Negative (Negative)
== END 2025-08-23 17:00 | disposition home or self-care (01) ==
LOC: LAB 11:09
PROVIDERS: ATTEND Nurse Practitioner Family
DX: I10 Essential (primary) hypertension (principal); E78.5 Hyperlipidemia, unspecified; E03.9 Hypothyroidism, unspecified; R73.03 Prediabetes; Z79.899 Other long term (current) drug therapy
CPT/HCPCS: 36415; 80053; 80061; 81001; 82306; 83036; 84439; 84443; 85025